=== PATIENT | male | born 1965 | race Caucasian/White ===

== ENCOUNTER 2020-10-17 13:42 | Outpatient (RCR) | payer MEDICARE, MEDICAID, SELFPAY | END 2020-11-24 15:54 | disposition home or self-care (01) | LOC: HO.WCC 13:42 | PROVIDERS: PCP Internal Medicine; Visit Provider Physician Assistant | DX: S31.821D Laceration without foreign body of left buttock, subsequent encounter (principal); G82.21 Paraplegia, complete; F12.90 Cannabis use, unspecified, uncomplicated; Z99.3 Dependence on wheelchair | CPT/HCPCS: 11042; 97597; 99212; 99213 ==

== ENCOUNTER 2022-09-12 10:54 | Outpatient (REF) | payer MEDICARE, MEDICAID, SELFPAY ==
[2022-09-12 11:03] LABS: MANUAL DIFF FLAG NO
[2022-09-12 11:55] LABS: Basophils Absolute Auto 0.1 X10*3/uL (0.0-0.2); Basophils Percent Auto 0.8 % (0-2); Eosinophils Absolute Auto 0.2 X10*3/uL (0.0-0.4); Eosinophils Percent Auto 3.7 % (0-4); Hematocrit 34.1 % (42.0-52.0); Hemoglobin 10.5 g/dl (14.0-18.0); Imm Gran Abs Auto 0.01 X10*3/uL (0.00-0.03); Imm Gran Pct Auto 0.2 % (0.0-0.4); Lymphocytes Absolute Auto 1.5 X10*3/uL (1.2-4.9); Lymphocytes Percent Auto 23.4 % (20-40); Mean Corpuscular HGB Conc 30.8 g/dl (31.0-36.0); Mean Corpuscular Hemoglobin 19.8 pg (27.0-33.0); Mean Platelet Volume 11.2 fL (9.4-12.4); Monocytes Absolute Auto 0.7 X10*3/uL (0.1-1.2); Monocytes Percent Auto 10.1 % (2-11); Neutrophils Percent Auto 61.8 % (45-73); Platelet Count 226 X10*3/uL (160-400); Red Blood Count 5.29 X10*6/uL (4.60-5.80); White Blood Count 6.5 X10*3/uL (4.8-10.8)
[2022-09-12 11:59] LABS: Mean Corpuscular Volume 64.5 fL (80.0-98.0)
[2022-09-12 12:55] LABS: Alanine Aminotransferase 28 U/L (0-40); Albumin Level 3.9 g/dL (3.5-5.0); Alkaline Phosphatase 79 U/L (39-117); Anion Gap 11 (12-20); Aspartate Amino Transferase 31 U/L (5-37); Bilirubin Total 0.6 mg/dL (0.0-1.0); Blood Urea Nitrogen 14 mg/dL (9-16); Calcium 9.1 mg/dL (8.4-10.2); Carbon Dioxide 28 mmol/L (22-29); Chloride 102 mmol/L (96-108); Cholesterol 153 mg/dL; Estimated Glomerular Filt Rate > 60; Glucose Fasting 196 mg/dL (60-99); HDL Cholesterol 31 mg/dL; Iron 108 mcg/dL (45-160); LDL Cholesterol Calculated 81 mg/dl; Percent Iron Saturation 50 % (15-50); Potassium 3.9 mmol/L (3.3-5.1); Sodium 137 mmol/L (135-145); Total Iron Binding Capacity 215 mcg/dL (228-428); Total Protein 6.8 g/dL (6.5-8.0); Triglycerides 208 mg/dL; Unsaturated Iron Binding 107 ug/dL
[2022-09-12 13:22] LABS: Ferritin 487 ng/mL (20-250); PSA,Total (Free>4and<10) 0.48 ng/mL (0.00-4.00); Thyroid Stimulating Hormone 1.85 uIU/mL (0.32-4.0)
== END 2022-09-12 10:55 | disposition home or self-care (01) ==
LOC: HO.LAB 10:54
PROVIDERS: Visit Provider Internal Medicine
DX: S24.102D Unspecified injury at T2-T6 level of thoracic spinal cord, subsequent encounter (principal)
CPT/HCPCS: 36415; 80053; 80061; 82306; 82728; 83540; 84153; 84443; 85025

== ENCOUNTER 2023-03-16 23:15 | Inpatient (IN) | payer MEDICARE, MEDICAID, SELFPAY ==
--- NOTE | ~2023-03-16 | XR_ITS ---
EXAMINATION: XR CHEST CLINICAL INFORMATION: Chills and cough. Shortness of breath. COMPARISON: CT from 01/02/2016 TECHNIQUE: Frontal view of the chest was obtained. FINDINGS: Thoracic spinal fusion hardware. The lungs are well expanded. There is no focal consolidation, edema, or effusion. No pneumothorax. The cardiomediastinal silhouette is within normal limits. No acute osseous abnormality. XR/XR chest 1V IMPRESSION: No acute pulmonary disease.
--- NOTE | ~2023-03-16 | CT_ITS ---
EXAMINATION: CT ABDOMEN AND PELVIS WITHOUT CONTRAST CLINICAL INFORMATION: UTI, bacteremia COMPARISON: 09/12/2016 TECHNIQUE: Multidetector volumetric imaging was performed from the superior aspect of the liver through the pubic symphysis. Sagittal and coronal reformatted images were obtained on the technologist's workstation. This CT examination was performed using dose optimization techniques as appropriate, variously including the following: *Automated exposure control *Adjustment of mA and/or kV according to patient size (this includes techniques or standardized protocols for targeted exams where dose is matched to indication/reason for exam; i.e. extremities or head) *Use of iterative reconstruction technique DLP: 503 mGy-cm FINDINGS: LUNG BASES: There is scarring in the right and left lung bases. LIVER, GALLBLADDER, AND BILIARY TREE: The liver is normal in size, shape, and attenuation. No focal hepatic lesion or biliary ductal dilatation is present. The gallbladder is unremarkable with no evidence of radiopaque gallstones, gallbladder wall thickening, or obvious pericholecystic inflammatory changes. PANCREAS: Unremarkable. SPLEEN: Spleen is mildly enlarged, measured 14.1 x 14.6 cm. ADRENAL GLANDS: Unremarkable. 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 BLADDER: Patient is status post cystectomy with conduit on the right. GASTROINTESTINAL TRACT: The small and large bowel are unremarkable. The appendix is unremarkable. ABDOMINAL WALL: There is conduit in the right stoma. LYMPH NODES: Normal. VASCULAR: There is IVC filter seen. PELVIC VISCERA: Unremarkable. OSSEOUS STRUCTURES: There are postsurgical changes in the left hip with hardware in place CT/CT abdomen pelvis wo IV con IMPRESSION: 1. Status post cystectomy with conduit on the right. 2. Mild splenomegaly. Fleischner guidelines were followed.
[2023-03-16 23:43] VITALS: BP 93/61; PULSE 101; RESP 18; TEMP 36.4; O2SAT 96; BMI 27.5
[2023-03-17] VITALS (7 sets, daily range): BP systolic 100–154; BP diastolic 53–83; PULSE 78–109; RESP 16–26; TEMP 36.1–39.2; O2SAT 95–98; BMI 27.5
[2023-03-17 00:03] LABS: MANUAL DIFF FLAG NO
[2023-03-17 00:05] LABS: Basophils Percent Auto 0.2 % (0-2); Eosinophils Percent Auto 0.2 % (0-4); Hemoglobin 9.1 g/dl (14.0-18.0); Imm Gran Abs Auto 0.07 X10*3/uL (0.00-0.03); Imm Gran Pct Auto 0.6 % (0.0-0.4); Lymphocytes Absolute Auto 0.5 X10*3/uL (1.2-4.9); Lymphocytes Percent Auto 4.2 % (20-40); Mean Corpuscular HGB Conc 31.4 g/dl (31.0-36.0); Mean Corpuscular Hemoglobin 19.3 pg (27.0-33.0); Mean Platelet Volume 8.8 fL (9.4-12.4); Monocytes Absolute Auto 0.8 X10*3/uL (0.1-1.2); Neutrophils Absolute Auto 11.2 x10*3/uL (2.0-8.3); Neutrophils Percent Auto 88.8 % (45-73); Platelet Count 239 X10*3/uL (160-400); Red Blood Count 4.72 X10*6/uL (4.60-5.80); Red Cell Distribution Width 14.7 % (11.0-16.0); White Blood Count 12.6 X10*3/uL (4.8-10.8)
[2023-03-17 00:06] LABS: Mean Corpuscular Volume 61.4 fL (80.0-98.0)
[2023-03-17 00:22] LABS: Anion Gap 17 (12-20)
[2023-03-17 00:26] LABS: Alanine Aminotransferase 16 U/L (0-40); Albumin Level 3.6 g/dL (3.5-5.0); Alkaline Phosphatase 73 U/L (39-117); Aspartate Amino Transferase 16 U/L (5-37); Bilirubin Direct 0.4 mg/dL (0.0-0.5); Blood Urea Nitrogen 16 mg/dL (9-16); Calcium 9.2 mg/dL (8.4-10.2); Carbon Dioxide 21 mmol/L (22-29); Chloride 97 mmol/L (96-108); Creatinine Clr Calc Pharmacy 93.8; Estimated Glomerular Filt Rate > 60; Glucose Random 213 mg/dL (60-115); Sodium 131 mmol/L (135-145); Total Protein 7.3 g/dL (6.5-8.0)
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
[2023-03-17 03:11] LABS: COVID-19 Test Negative (Negative); IDNOW Serial# 08D9AD1C; IDNOW Serial# BCCEAD1C; Influenza A Negative (Negative)
[2023-03-17 03:12] LABS: Influenza B2 Negative (Negative)
[2023-03-17 03:19] LABS: Appearance Urine Cloudy; Color Urine Yellow; Glucose Urine UA 500 mg/dL (Negative); Leukocyte Esterase Urine Large (3+) (Negative); Nitrite Urine Positive (Negative); PH 6.5 (5.0-9.0); UMIC TRIGGER UACC YES; Urine Blood Trace (Negative); Urine Ketones Negative (Negative); Urine Protein Negative (Neg-Trace)
[2023-03-17 03:26] LABS: Bacteria Urine 4+ (None Seen); Hyaline Casts Urine 0-2 /LPF (0-2); UACC Culture Trigger YES; WBC Urine >50 /HPF (0-5)
[2023-03-17] MEDS: Acetaminophen 325 MG TABLET 975 MG PO (04:28)
[2023-03-17] MEDS: cefTRIAXone sodium 1 GM in 0.9 % Sodium Chloride 50 ML IV (04:28)
[2023-03-17 04:44] LABS: Lactic Acid 3.7 mmol/L (0.5-2.0)
--- NOTE | 2023-03-17 04:45 | PC.NURSE ---
critical lactic 3.7 reported to ANTHONY Queen and Provider Dr. Hong braswell.
[2023-03-17] MEDS: ondansetron HCL 4 MG/2 ML VIAL IVPUSH (04:50)
[2023-03-17 06:28] LABS: Reflex Lactate? Lactic Acid Added
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
--- NOTE | 2023-03-17 07:12 | PHA.MEDREC ---
Pharmacy Consult ? Medication Reconciliation Pharmacy has reviewed the medication reconciliation odne by RN.
[2023-03-17 07:39] LABS: ~Lactic Acid-LAB USE ONLY 0.8 mmol/L (0.5-2.0)
[2023-03-17] MEDS: Lactated Ringers 1,000 ML 100 ML IVCONT (07:50)
--- NOTE | 2023-03-17 09:58 | PM.EVENT ---
Event Note Date of Service: 03/17/23 Event Note: pt seen/examined, admitted. A/P per H and P from today, continue per H and P Time Spent With Patient Time: Total time managing care of this patient today ____ minutes.
--- NOTE | 2023-03-17 12:30 | MHC.CM.PN ---
IMM DELIVERED PT LIVES ALONE, INDEPENDENT AT BASELINE. W/C BOUND AND SELF TRANSFERS. NO HCP, DECLINES . PCP DR. ESCOBAR. DP: HOME ,NO SERVICES ANTICIPATED. FAMILY WILL TRANSPORT. CM WILL CONTINUE TO FOLLOW FOR DC NEEDS/CHANGES IN PLAN.
--- NOTE | 2023-03-17 14:10 | PC.NURSE ---
Patient brought to floor at approximately 10am. Alert and oriented, arrived in his own personal wheelchair. Ambulates independently within his room. Assessed and all information put into the computer. No c/o pain. Vitals stable, pt eating breakfast and sitting at table.
[2023-03-17] MEDS: Baclofen 20 MG TABLET PO ×2 (17:53→23:49)
[2023-03-17] MEDS: oxyCODONE HCl Immed Release 5 MG TABLET 10 MG PO ×2 (17:53→23:49)
[2023-03-17] MEDS: Enoxaparin Sodium 40 MG/0.4 ML SYRINGE SUBCUT (20:56)
[2023-03-17] MEDS: 0.9 % Sodium Chloride Flush 3 ML SYRINGE IVFLUSH (20:58)
[2023-03-17] MEDS: Acetaminophen 325 MG TABLET 650 MG PO (23:49)
[2023-03-18 03:30] VITALS: BP 109/69; PULSE 74; RESP 16; TEMP 36.1; O2SAT 97
[2023-03-18] MEDS: Baclofen 20 MG TABLET PO ×2 (06:06→19:57)
[2023-03-18] MEDS: oxyCODONE HCl Immed Release 5 MG TABLET 10 MG PO ×3 (06:06→19:56)
[2023-03-18 06:20] LABS: Anion Gap 15 (12-20); Blood Urea Nitrogen 12 mg/dL (9-16); Calcium 8.9 mg/dL (8.4-10.2); Carbon Dioxide 20 mmol/L (22-29); Chloride 107 mmol/L (96-108); Creatinine Clr Calc Pharmacy 122.3; Estimated Glomerular Filt Rate > 60; Glucose Random 161 mg/dL (60-115); Potassium 3.7 mmol/L (3.3-5.1); Sodium 138 mmol/L (135-145)
[2023-03-18 06:29] LABS: Basophils Percent Auto 0.3 % (0-2); Eosinophils Absolute Auto 0.2 X10*3/uL (0.0-0.4); Eosinophils Percent Auto 3.3 % (0-4); Hematocrit 25.3 % (42.0-52.0); Hemoglobin 7.9 g/dl (14.0-18.0); Imm Gran Abs Auto 0.02 X10*3/uL (0.00-0.03); Imm Gran Pct Auto 0.3 % (0.0-0.4); Lymphocytes Absolute Auto 1.1 X10*3/uL (1.2-4.9); MANUAL DIFF FLAG SCAN; Mean Corpuscular HGB Conc 31.2 g/dl (31.0-36.0); Mean Corpuscular Hemoglobin 19.3 pg (27.0-33.0); Mean Platelet Volume 10.2 fL (9.4-12.4); Monocytes Absolute Auto 0.9 X10*3/uL (0.1-1.2); Monocytes Percent Auto 13.3 % (2-11); Neutrophils Absolute Auto 4.7 x10*3/uL (2.0-8.3); Neutrophils Percent Auto 66.8 % (45-73); Platelet Count 200 X10*3/uL (160-400); SCAN SMEAR FLAG 1; White Blood Count 7.1 X10*3/uL (4.8-10.8)
[2023-03-18 06:33] LABS: Mean Corpuscular Volume 61.7 fL (80.0-98.0)
[2023-03-18 07:18] LABS: SLIDE REVIEW VERIFIED
[2023-03-18 07:36] VITALS: BP 115/64; PULSE 62; RESP 18; TEMP 36.1; O2SAT 98
[2023-03-18] MEDS: Omeprazole 20 MG CAPSULE.DR PO (07:59)
[2023-03-18] MEDS: cefTRIAXone sodium 2 GM in 0.9 % Sodium Chloride 50 ML IV (08:00)
[2023-03-18] MEDS: 0.9 % Sodium Chloride Flush 3 ML SYRINGE IVFLUSH ×3 (08:00→20:03)
--- NOTE | 2023-03-18 09:47 | P.PNIM_ITS ---
Subjective Subjective Date of Service: 03/18/23 Interval History: f/u on sepsis d/t uti responding well to treatment, no more fever or chills, he wishes to go home soon Physical Exam Vital Signs: Vital Signs: Last Vital Signs Temp 97.0 F 03/18/23 07:36 Pulse 62 03/18/23 07:36 Resp 18 03/18/23 07:36 BP 115/64 03/18/23 07:36 Pulse Ox 98 03/18/23 07:36 O2 Del Method Room Air 03/18/23 07:36 BMI result Body Mass Index 27.5 Const: Other: a&0 x 3 cv rrr s1s2 lungs cta abd s, nd, nt ext no edema neuro nf Objective Data Active Medications Acetaminophen (Acetaminophen 325 Mg Tablet) 650 mg PO Q6H PRN PRN Reason: Pain, Mild (Pain Scale 1-3) Last Admin: 03/17/23 23:49 Dose: 650 mg Documented By: SOWMYA Baclofen (Baclofen 20 Mg Tablet) 20 mg PO QID PRN PRN Reason: Muscle Pain Last Admin: 03/18/23 06:06 Dose: 20 mg Documented By: NICOLETTE Docusate Sodium (Docusate Sodium 100 Mg Capsule) 100 mg PO DAILY PRN PRN Reason: Constipation Enoxaparin Sodium (Enoxaparin Sodium 40 Mg/0.4 Ml Syringe) 40 mg SUBCUT Q24H [facility] Last Admin: 03/17/23 20:56 Dose: 40 mg Documented By: GEORGINA Lactated Ringer's (Lr) 1,000 mls @ 100 mls/hr IVCONT .Q10H [facility] Last Admin: 03/18/23 04:11 Dose: Not Given Documented By: NICOLETTE Non-Admin Reason: IV Running Ceftriaxone Sodium 2 gm/ (Sodium Chloride) 50 mls @ 100 mls/hr IV Q24H [facility] Last Infusion: 03/18/23 08:33 Dose: 100 mls/hr Documented By: JOHNNY Ibuprofen (Ibuprofen 800 Mg Tablet) 800 mg PO BID PRN PRN Reason: Pain (Scale Score 1-3) Omeprazole (Omeprazole 20 Mg Capsule.) 20 mg PO DAILY [facility] Last Admin: 03/18/23 07:59 Dose: 20 mg Documented By: JOHNNY Ondansetron HCl (Ondansetron Hcl 4 Mg/2 Ml Vial) 4 mg IVPUSH Q8H PRN PRN Reason: Nausea and Vomiting Oxycodone HCl (Oxycodone Hcl Immed Release 5 Mg Tablet) 10 mg PO Q6H PRN PRN Reason: Pain (Scale Score 4-6) Last Admin: 03/18/23 06:06 Dose: 10 mg Documented By: NICOLETTE Pharmacy Consult (Consult Rx Perform Med Rec) 1 each MISCELLANE ONCE PRN PRN Reason: Consult order Sodium Chloride (0.9 % Sodium Chloride Flush 3 Ml Syringe) 3 ml IVFLUSH QSHIFT [facility] Last Admin: 03/18/23 08:00 Dose: 3 ml Documented By: JOHNNY Labs 03/18/23 05:38 03/18/23 05:38 Labs: Laboratory Results - last 24 hr 03/18/23 03/18/23 05:38 05:38 MCV 61.7 L MCH 19.3 L MCHC 31.2 RDW 15.0 Plt Count 200 MPV 10.2 Immature Gran % (Auto) 0.3 Neut % (Auto) 66.8 Lymph % (Auto) 16.0 L Bulloch % (Auto) 13.3 H Eos % (Auto) 3.3 Baso % (Auto) 0.3 Lymph # (Auto) 1.1 L Bulloch # (Auto) 0.9 Eos # (Auto) 0.2 Baso # (Auto) 0.0 Abs Immat Gran (auto) 0.02 Absolute Neuts (auto) 4.7 Absolute Nucleated RBC 0.000 Nucleated RBC % (auto) 0.0 Smear Tech's Comments VERIFIED Anion Gap 15 Estim Creat Clear Calc 122.3 Estimated GFR > 60 Random Glucose 161 H Calcium 8.9 Microbiology Microbiology Results: Microbiology 03/17/23 02:43 Blood Culture - Preliminary Blood - Venous Prelim: GNR Gram Stain only 03/17/23 02:43 Blood Culture - Preliminary Blood - Venous Prelim: GNR Gram Stain only Assessment and Plan (1) Sepsis: Status: Acute (2) Bacteremia: Status: Acute (3) Urinary tract infection: Status: Acute Plan This is a 57-year-old male with past medical history of paraplegia wheelchair- bound, urostomy, comes into the hospital with complaints of fever chills, found to have sepsis d/t gram negative elaine uti and bacteremia # sepsis d/t gran begative rid uti and bacteremia, clinically responding to Ceftriaxone -continue Ceftriaxone 2 grams daily, follow culture sensitivity, id consult #acute lactic acidosis d/t sepsis DVT prophylaxis:? Lovenox Given patient's need for further management of sepsis with IV antibiotics patient require minimum 2 nights inpatient hospital stay for further management and monitoring Time Spent With Patient Time: Total time managing care of this patient today ____ minutes. Time Spent With Patient Time: Total time managing care of this patient today ____ minutes. Quality Stroke Does the patient have a stroke diagnosis?: No VTE Prior VTE?: No VTE Risk Level:: Medical - moderate - high VTE Device Contraindication: Treatment Not Indicated VTE Drug Contraindication: N/A - Med Ordered
--- NOTE | 2023-03-18 12:17 | P.CDIM_ITS ---
PROVIDER RESPONSE TEXT: To clarify, the appropriate diagnosis supported by the clinical indicators: Acute lactic acidosis QUERY TEXT: PHYSICIAN'S DOCUMENTATION REQUEST Date of Query: 03/17/2023 11:36 AM EDT Patient Name: JOSE GALVAN Admit Date: 03/17/2023 Dear Cornelio Neville, A review of the medical record indicates additional documentation may be needed. Please review below and update the documentation accordingly. Clinical Indicators: PN: Dx. Lactic acidosis LA 3.7 IV fluids Clarify which of the following accurately represents the acuity of the Lactic acidosis: Acute lactic acidosis Other please specify Other (explain)Clinically unable to determine (explain)Thank you, Karishma Zamora, CCS, CDIS Use of terms such as suspected, likely, concern for, or probable (associated with a specific diagnosi s that is being evaluated, monitored, or treated as if it exists) are acceptable and can be coded in the inpatient se tting, when documented at the time of discharge. Please use your independent medical judgment in providing your response. THIS QUERY IS PART OF THE PERMANENT MEDICAL RECORD
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
[2023-03-18 16:00] VITALS: BP 132/26; PULSE 87; RESP 18; TEMP 37.1; O2SAT 98
[2023-03-18 19:39] VITALS: BP 120/66; PULSE 82; RESP 18; TEMP 36.8; O2SAT 97
[2023-03-18] MEDS: Acetaminophen 325 MG TABLET 650 MG PO (19:57)
[2023-03-18] MEDS: Enoxaparin Sodium 40 MG/0.4 ML SYRINGE SUBCUT (19:57)
[2023-03-18] MEDS: Ibuprofen 800 MG TABLET PO (20:06)
[2023-03-19] MEDS: Acetaminophen 325 MG TABLET 650 MG PO ×2 (02:01→08:26)
[2023-03-19] MEDS: oxyCODONE HCl Immed Release 5 MG TABLET 10 MG PO ×2 (02:02→08:27)
[2023-03-19] MEDS: Baclofen 20 MG TABLET PO ×2 (02:02→08:26)
[2023-03-19 03:16] VITALS: BP 113/69; PULSE 60; RESP 18; TEMP 36.3; O2SAT 98
[2023-03-19] MEDS: Omeprazole 20 MG CAPSULE.DR PO (07:34)
[2023-03-19] MEDS: 0.9 % Sodium Chloride Flush 3 ML SYRINGE IVFLUSH (07:42)
[2023-03-19 08:00] VITALS: BP 130/78; PULSE 65; RESP 18; TEMP 36.4; O2SAT 98
[2023-03-19] MEDS: cefTRIAXone sodium 2 GM in 0.9 % Sodium Chloride 50 ML IV (08:26)
--- NOTE | 2023-03-19 08:45 | HO.PM.IMPN ---
Subjective Subjective Date of Service: 03/19/23 Interval History: f/u on sepsis d/t uti no fever or chills, culture sensitivity pending Physical Exam Vital Signs: Vital Signs: Last Vital Signs Temp 97.5 F 03/19/23 08:00 Pulse 65 03/19/23 08:00 Resp 18 03/19/23 08:00 BP 130/78 03/19/23 08:00 Pulse Ox 98 03/19/23 08:00 O2 Del Method Room Air 03/19/23 08:00 BMI result Body Mass Index 27.5 Const: Other: a&0 x 3 cv rrr s1s2 lungs cta abd s, nd, nt ext no edema neuro nf Objective Data Active Medications Acetaminophen (Acetaminophen 325 Mg Tablet) 650 mg PO Q6H PRN PRN Reason: Pain, Mild (Pain Scale 1-3) Last Admin: 03/19/23 08:26 Dose: 650 mg Documented By: YARITZA Baclofen (Baclofen 20 Mg Tablet) 20 mg PO QID PRN PRN Reason: Muscle Pain Last Admin: 03/19/23 08:26 Dose: 20 mg Documented By: YARITZA Docusate Sodium (Docusate Sodium 100 Mg Capsule) 100 mg PO DAILY PRN PRN Reason: Constipation Enoxaparin Sodium (Enoxaparin Sodium 40 Mg/0.4 Ml Syringe) 40 mg SUBCUT Q24H [facility] Last Admin: 03/18/23 19:57 Dose: 40 mg Documented By: SOWMYA Ceftriaxone Sodium 2 gm/ (Sodium Chloride) 50 mls @ 100 mls/hr IV Q24H [facility] Last Admin: 03/19/23 08:26 Dose: 100 mls/hr Documented By: YARITZA Ibuprofen (Ibuprofen 800 Mg Tablet) 800 mg PO BID PRN PRN Reason: Pain (Scale Score 1-3) Last Admin: 03/18/23 20:06 Dose: 800 mg Documented By: SOWMYA Omeprazole (Omeprazole 20 Mg Capsule.Dr) 20 mg PO DAILY [facility] Last Admin: 03/19/23 07:34 Dose: 20 mg Documented By: YARITZA Ondansetron HCl (Ondansetron Hcl 4 Mg/2 Ml Vial) 4 mg IVPUSH Q8H PRN PRN Reason: Nausea and Vomiting Oxycodone HCl (Oxycodone Hcl Immed Release 5 Mg Tablet) 10 mg PO Q6H PRN PRN Reason: Pain (Scale Score 4-6) Last Admin: 03/19/23 08:27 Dose: 10 mg Documented By: YARITZA Pharmacy Consult (Consult Rx Perform Med Rec) 1 each MISCELLANE ONCE PRN PRN Reason: Consult order Sodium Chloride (0.9 % Sodium Chloride Flush 3 Ml Syringe) 3 ml IVFLUSH QSHIFT [facility] Last Admin: 03/19/23 07:42 Dose: 3 ml Documented By: YARITZA Vancomycin HCl (Vancomycin Hcl 125 Mg Capsule) 125 mg PO Q6H [facility] Labs 03/18/23 05:38 03/18/23 05:38 Microbiology Microbiology Results: Microbiology 03/17/23 02:43 Blood Culture - Final Blood - Venous Escherichia coli 03/17/23 02:43 Blood Culture - Final Blood - Venous Escherichia coli 03/17/23 Unknown Urine Culture - Final Urine clean catch - Urine fortune top Escherichia coli Assessment and Plan (1) Sepsis: Status: Acute (2) Bacteremia: Status: Acute (3) Urinary tract infection: Status: Acute Plan This is a 57-year-old male with past medical history of paraplegia wheelchair-bound, urostomy, comes into the hospital with complaints of fever chills, found to have sepsis d/t gram negative elaine uti and bacteremia # sepsis d/t gran begative elaine uti and bacteremia, clinically responding to Ceftriaxone -continue Ceftriaxone 2 grams daily, follow culture sensitivity, id recommendation noted -vanco po for c dif prophylaxis #acute lactic acidosis d/t sepsis DVT prophylaxis:? Lovenox Given patient's need for further management of sepsis with IV antibiotics patient require minimum 2 nights inpatient hospital stay for further management and monitoring Time Spent With Patient Time: Total time managing care of this patient today ____ minutes. Time Spent With Patient Time: Total time managing care of this patient today ____ minutes. Quality Stroke Does the patient have a stroke diagnosis?: No VTE Prior VTE?: No VTE Risk Level:: Medical - moderate - high VTE Device Contraindication: Treatment Not Indicated VTE Drug Contraindication: N/A - Med Ordered
[2023-03-19] MEDS: vancomycin HCL 125 MG CAPSULE PO (08:58)
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
--- NOTE | 2023-03-19 12:50 | MHC.CM.PN ---
DP: PT HAS BEEN MEDICALLY CLEARED FOR DC HOME, NO SERVICES. FAMILY WILL TRANSPORT HOME
--- NOTE | 2023-03-19 16:42 | PM.EVENT ---
Event Note Date of Service: 03/19/23 Event Note: patient should have 14 days po cephalosporin and po Vancomycin 125 qid for total duration and for 2 days after Cdiff prevention Time Spent With Patient Time: Total time managing care of this patient today ____ minutes.
== END 2023-03-19 13:36 | disposition home or self-care (01) | DRG 872 ==
LOC: HO.ED 03-17 04:59 → HO.EDOVER 03-17 06:51 → HO.S3 03-17 07:49
PROVIDERS: Admitting Provider Internal Medicine; Emergency Provider Emergency Medicine Emergency Medical Services; PCP Internal Medicine; Visit Provider Internal Medicine
DX: A41.51 Sepsis due to Escherichia coli [E. coli] (principal); N39.0 Urinary tract infection, site not specified; G82.20 Paraplegia, unspecified; E87.21 Acute metabolic acidosis; S24.102S Unspecified injury at T2-T6 level of thoracic spinal cord, sequela; Y24.9XXS Unspecified firearm discharge, undetermined intent, sequela; Z87.440 Personal history of urinary (tract) infections; Z93.6 Other artificial openings of urinary tract status; Z20.822 Contact with and (suspected) exposure to COVID-19; Z79.899 Other long term (current) drug therapy
CPT/HCPCS: 36415; 71045; 74176; 80048; 80076; 81001; 83605; 85025; 87040; 87077; 87086; 87088; 87186; 87205; 87502; 87635; 99285; J0696; J1650; J2405

== ENCOUNTER → 2023-03-17 06:48 | Outpatient (BNV) | payer MEDICARE, MEDICAID, SELFPAY | PROVIDERS: Admitting Provider Internal Medicine; Emergency Provider Emergency Medicine Emergency Medical Services; PCP Internal Medicine; Visit Provider Internal Medicine | DX: A41.9 Sepsis, unspecified organism (principal); N39.0 Urinary tract infection, site not specified | CPT/HCPCS: 99222; 99499 ==

== ENCOUNTER → 2023-03-17 06:48 | Outpatient (BNV) | payer MEDICARE, MEDICAID, SELFPAY | PROVIDERS: Admitting Provider Internal Medicine; Emergency Provider Emergency Medicine Emergency Medical Services; PCP Internal Medicine; Visit Provider Internal Medicine | DX: A41.9 Sepsis, unspecified organism (principal); N39.0 Urinary tract infection, site not specified | CPT/HCPCS: 99223; 99232; 99239; 99499 ==

== ENCOUNTER 2023-09-12 08:23 | Inpatient (IN) | payer MEDICARE, MEDICAID, SELFPAY ==
--- NOTE | ~2023-09-12 | XR_ITS ---
EXAMINATION: Left ankle, left knee and left hip. CLINICAL INDICATIONS: Fall. COMPARISON: AP pelvis and bilateral hips 05/25/2015. TECHNIQUE: AP pelvis left hip 3 views. Left knee 2 views and left ankle 2 views. FINDINGS: Left ankle: The ankle mortise and subtalar joints are normal. There is mild osteopenia. No visible acute fracture, dislocation or subluxation seen. LEFT KNEE: There is a supracondylar comminuted fracture distal femur with anterior angulation of distal fragment. There is mild suprapatellar joint effusion with soft tissue edema. There is diffuse osteopenia present. LEFT HIP AND AP PELVIS: There is normal symmetry of bilateral hip joints. There are 3 nails in the left femoral neck for an old healed fracture. There is no recurrent fracture seen in the left hip. The acetabulum and the left pelvic bones are normal. SI joints are symmetrical and normal. XR/XR hip LT min 2V IMPRESSION: Supracondylar comminuted fracture left distal femur with anterior angulation distal fragment. Mild joint effusion. No fracture or dislocation left ankle.. The old healed fracture left femoral neck. No recurrent fracture seen. The right hip and the rest the pelvis unremarkable. There is significant osteopenia seen throughout the pelvis and the left lower extremity.
--- NOTE | ~2023-09-12 | XR_ITS ---
EXAMINATION: Left ankle, left knee and left hip. CLINICAL INDICATIONS: Fall. COMPARISON: AP pelvis and bilateral hips 05/25/2015. TECHNIQUE: AP pelvis left hip 3 views. Left knee 2 views and left ankle 2 views. FINDINGS: Left ankle: The ankle mortise and subtalar joints are normal. There is mild osteopenia. No visible acute fracture, dislocation or subluxation seen. LEFT KNEE: There is a supracondylar comminuted fracture distal femur with anterior angulation of distal fragment. There is mild suprapatellar joint effusion with soft tissue edema. There is diffuse osteopenia present. LEFT HIP AND AP PELVIS: There is normal symmetry of bilateral hip joints. There are 3 nails in the left femoral neck for an old healed fracture. There is no recurrent fracture seen in the left hip. The acetabulum and the left pelvic bones are normal. SI joints are symmetrical and normal. XR/XR ankle LT 2V IMPRESSION: Supracondylar comminuted fracture left distal femur with anterior angulation distal fragment. Mild joint effusion. No fracture or dislocation left ankle.. The old healed fracture left femoral neck. No recurrent fracture seen. The right hip and the rest the pelvis unremarkable. There is significant osteopenia seen throughout the pelvis and the left lower extremity.
--- NOTE | ~2023-09-12 | XR_ITS ---
EXAMINATION: Left ankle, left knee and left hip. CLINICAL INDICATIONS: Fall. COMPARISON: AP pelvis and bilateral hips 05/25/2015. TECHNIQUE: AP pelvis left hip 3 views. Left knee 2 views and left ankle 2 views. FINDINGS: Left ankle: The ankle mortise and subtalar joints are normal. There is mild osteopenia. No visible acute fracture, dislocation or subluxation seen. LEFT KNEE: There is a supracondylar comminuted fracture distal femur with anterior angulation of distal fragment. There is mild suprapatellar joint effusion with soft tissue edema. There is diffuse osteopenia present. LEFT HIP AND AP PELVIS: There is normal symmetry of bilateral hip joints. There are 3 nails in the left femoral neck for an old healed fracture. There is no recurrent fracture seen in the left hip. The acetabulum and the left pelvic bones are normal. SI joints are symmetrical and normal. XR/XR knee LT 2V IMPRESSION: Supracondylar comminuted fracture left distal femur with anterior angulation distal fragment. Mild joint effusion. No fracture or dislocation left ankle.. The old healed fracture left femoral neck. No recurrent fracture seen. The right hip and the rest the pelvis unremarkable. There is significant osteopenia seen throughout the pelvis and the left lower extremity.
--- NOTE | ~2023-09-12 | CT_ITS ---
EXAMINATION: CT FEMUR WITH CONTRAST, LEFT CLINICAL INFORMATION: Hematoma. Fall. COMPARISON: Left hip radiographs dated 09/12/2023. CT abdomen/pelvis dated 03/19/2023. TECHNIQUE: Contiguous axial CT images of the left femur were obtained following the IV administration of 85 mL Omnipaque 350 contrast. Multiplanar reformats were provided and reviewed. This CT examination was performed using dose optimization techniques as appropriate, variously including the following: *Automated exposure control *Adjustment of mA and/or kV according to patient size (this includes techniques or standardized protocols for targeted exams where dose is matched to indication/reason for exam; i.e. extremities or head) *Use of iterative reconstruction technique. DOSE: 417 mGy-cm. FINDINGS: Comminuted and displaced distal femoral fracture with a dominant oblique component to the fracture which extends into the posterior and lateral cortex. The distal fracture fragment is displaced anteriorly with cortical step off measuring up to 1.5 cm in AP dimension. Multiple small fracture fragments are seen along the periphery of the main fracture line. The fracture lines extend distally to the distal femoral metaphysis without contacting the femoral articular surface. No additional fracture or dislocation. Proximal left femoral orthopedic screws without evidence of hardware fracture or loosening. No femoral head avascular necrosis. No concerning lytic or blastic osseous lesion. Moderate lipohemarthrosis within the left knee. Soft tissue edema and swelling adjacent to the fracture as well as throughout the quadriceps musculature. No large fluid collection or significant hematoma formation. No soft tissue mass or enhancing lesion. Vascular calcifications. No active extravasation of contrast. Grossly unremarkable intrapelvic structures. CT/CT femur LT w IV con IMPRESSION: 1. Comminuted and displaced distal femoral fracture with a dominant oblique component extending into the posterior and lateral cortex. The distal fracture fragment is displaced anteriorly with cortical step-off measuring up to 1.5 cm in AP dimension. Multiple small fracture fragments along the periphery of the main fracture line. No contacting the femoral articular surface. 2. Moderate lipohemarthrosis within the left knee. Soft tissue edema and swelling adjacent to the fracture as well as throughout the quadriceps musculature. No large fluid collection or significant hematoma formation. 3. Proximal left femoral orthopedic screws without evidence of hardware fracture or loosening.
[2023-09-12 08:40] VITALS: BP 120/81; PULSE 121; RESP 16; TEMP 36.8; O2SAT 97; BMI 27.4
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
[2023-09-12 10:38] LABS: Hematocrit 30.6 % (42.0-52.0); Hemoglobin 9.6 g/dl (14.0-18.0); Mean Corpuscular HGB Conc 31.4 g/dl (31.0-36.0); Mean Corpuscular Hemoglobin 19.5 pg (27.0-33.0); Mean Corpuscular Volume 62.2 fL (80.0-98.0); Mean Platelet Volume 10.3 fL (9.4-12.4); Platelet Count 254 X10*3/uL (160-400); Red Blood Count 4.92 X10*6/uL (4.60-5.80); Red Cell Distribution Width 15.5 % (11.0-16.0); White Blood Count 9.1 X10*3/uL (4.8-10.8)
[2023-09-12 10:44] LABS: Prothrombin Time 11.9 SEC (11.1-13.3)
--- NOTE | 2023-09-12 10:57 | ECG_ITS ---
Test Reason : FEMUR FRACTURE Blood Pressure : / mmHG Vent. Rate : 097 BPM Atrial Rate : 097 BPM P-R Int : 172 ms QRS Dur : 066 ms QT Int : 302 ms P-R-T Axes : 068 048 053 degrees QTc Int : 383 ms Normal sinus rhythm Normal ECG When compared with ECG of 02-JAN-2016 11:44, No significant change was found Referred By: Suzi Truong Electronically Signed By:Ryan Cho
--- NOTE | 2023-09-12 10:57 | PC.NURSE ---
coming from home, patient paralyzed - wheelchair bound. having difficulty/pain with ADLs s/p fall from wheelchair. IV established, labs obtained and sent. awaiting ortho consult
[2023-09-12] MEDS: ondansetron HCL 4 MG/2 ML VIAL IVPUSH (11:10)
[2023-09-12] MEDS: Morphine Sulfate 4 MG/ML CARTRIDGE IVPUSH (11:10)
[2023-09-12 11:13] VITALS: BP 138/89; PULSE 115; RESP 18; TEMP 36.7; O2SAT 100
[2023-09-12 11:14] LABS: Anion Gap 14 (12-20); Blood Urea Nitrogen 15 mg/dL (9-16); Calcium 9.1 mg/dL (8.4-10.2); Carbon Dioxide 22 mmol/L (22-29); Chloride 103 mmol/L (96-108); Creatinine Clr Calc Pharmacy 106.4; Estimated Glomerular Filt Rate > 60; Glucose Random 232 mg/dL (60-115); Potassium 4.4 mmol/L (3.3-5.1); Sodium 135 mmol/L (135-145)
[2023-09-12] MEDS: Baclofen 20 MG TABLET PO ×2 (11:31→17:41)
--- NOTE | 2023-09-12 11:49 | PHA.MEDREC ---
Pharmacy Consult ? Medication Reconciliation Pharmacy has completed the medication reconciliation.
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
[2023-09-12 14:48] LABS: COVID-19 Test Negative (Negative); IDNOW Serial# 08D9AD1C
[2023-09-12 16:28] VITALS: BP 131/78; PULSE 104; RESP 14; O2SAT 98
[2023-09-12] MEDS: oxyCODONE HCl Immed Release 5 MG TABLET 10 MG PO ×2 (17:41→23:04)
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
--- NOTE | 2023-09-12 18:18 | PC.NURSE ---
patient medicated per the OCT, states that he takes his baclofen and oxycodone q6h, next dose due 2344. placed into hospital bed for comfort. awaiting ortho to apply immobilizer to left leg. thompson bag placed for comfort at night with urostomy bag. patient has own wheelchair in room, usually is independent at home, however is pt/cm at this time.
[2023-09-12 19:01] VITALS: BP 118/69; PULSE 94; RESP 17; TEMP 37.2; O2SAT 96
--- NOTE | 2023-09-12 19:05 | PC.NURSE ---
assumed care of pt
--- NOTE | 2023-09-12 20:56 | PC.NURSE ---
Assumed care of pt from ANTHONY Cordero. Pt transferred from ED room 1 to Overflow on hospital bed without incident. pt belongings including wheelchair brought with pt, placed in room. Pt oriented to surroundings, provided with tv remote and call estrella. QuintinO x4, no acute distress at this time.
--- NOTE | 2023-09-13 04:57 | PC.NURSE ---
Assumed care of patient. A&Ox4,, patient sleeping throughout night. Call estrella within reach. Bed alarm on for safety.
[2023-09-13 05:46] VITALS: BP 136/71; PULSE 97; RESP 16; TEMP 36.9; O2SAT 95
[2023-09-13] MEDS: oxyCODONE HCl Immed Release 5 MG TABLET 10 MG PO ×3 (05:54→18:33)
[2023-09-13] MEDS: Baclofen 20 MG TABLET PO ×3 (05:55→18:33)
--- NOTE | 2023-09-13 06:07 | MHC.EDTECH ---
This tech emptied thompson bag at time of vitals, pt was very pleasant. Requested to see nurse for medication at time of vitals. RN was made aware and medication was given.
[2023-09-13] MEDS: Omeprazole 20 MG CAPSULE.DR PO (08:22)
[2023-09-13 08:34] VITALS: BP 141/77; PULSE 74; RESP 20; TEMP 36.6; O2SAT 95
[2023-09-13 10:03] VITALS: BP 141/77; PULSE 74; O2SAT 95
--- NOTE | 2023-09-13 11:14 | MHC.CM.ED ---
Met with pt to review PT eval and acute rehab referrals. Declined by [facility] reviewing and [facility] interested but no beds today. Will await determinations - pt aware and in agreement: family bringing some of pt's personal adaptive equipment to promote independence while waiting for placement. Pt has an immobilizer in place - no surgical intervention warranted at this time. ED CM to follow
[2023-09-13 13:53] VITALS: BP 109/59; PULSE 98; RESP 16; TEMP 37.2; O2SAT 94
--- NOTE | 2023-09-13 16:51 | MHC.EDTECH ---
Brought patient a fresh pitcher of ice water.
--- NOTE | 2023-09-13 18:48 | PC.NURSE ---
A/Ox4. Pleasant and cooperative. Left knee immobilizer in place. Reporting intermittent pain, medicated per MAR. Awaiting rehab placement
--- NOTE | 2023-09-13 20:07 | MHC.EDTECH ---
Brought patient a pitcher of ice water.
[2023-09-13 22:00] VITALS: BP 118/62; PULSE 96; RESP 16; TEMP 37; O2SAT 95
--- NOTE | 2023-09-13 22:05 | PC.NURSE ---
[id number] Nursing Note. Pt alert oriented x4. Moves upper body well, assist with turns. Buttocks pink, blanchable intact foam applied. Foam applied to bilateral heels for protection. Patient left lower leg is swollen, positive strong palpable pulses. Warm to touch. No redness noted. Knee immobilizer in place. Skin intact without redness under brace.
[2023-09-14] MEDS: oxyCODONE HCl Immed Release 5 MG TABLET 10 MG PO ×4 (00:33→18:51)
[2023-09-14] MEDS: Baclofen 20 MG TABLET PO ×4 (00:33→18:51)
--- NOTE | 2023-09-14 00:41 | PC.NURSE ---
Patient medicated with Baclofen 20 mg PO and Oxycodone 10 mg PO for 10/10 generalized pain. Patient requested pudding and crackers with meds.
--- NOTE | 2023-09-14 03:20 | MHC.EDTECH ---
Patient rang estrella and said his bed was wet from sweat ,care given and complete bed change ,Pt wanted to wear a long sleeve shirt ,which we put on him ,fresh sheet and blanket given and fresh ice water .
--- NOTE | 2023-09-14 03:32 | PC.NURSE ---
Patient requested bed linen change, reporting bed is wet d/t sweat. This RN assisted JOHN Hendricks tech to change bed linens and provided personal care to patient. Patient is afebrile. Patient reports generalized pain is at tolerable level 5/10 at present. Sal[place]a emptied urostomy bag with 1000 mL of urine output noted.
[2023-09-14 06:00] VITALS: BP 125/64; PULSE 68; RESP 16; TEMP 36.3; O2SAT 96
[2023-09-14] MEDS: Omeprazole 20 MG CAPSULE.DR PO (08:53)
--- NOTE | 2023-09-14 12:40 | PC.NURSE ---
assumed care of pt at 1100, pt resting quietly in bed, a&ox4, vss, eating lunch. medicated per OCT. no needs at this time.
[2023-09-14 13:49] VITALS: BP 129/73; PULSE 100; RESP 20; TEMP 36.8; O2SAT 97
--- NOTE | 2023-09-14 13:49 | MHC.CM.ED ---
Pt boarding in ED waiting for rehab placement: Review of acute rehab referrals: [facility] may have a bed on Friday: Zoe and Cody suggest to follow up on Friday as well. Pt updated on status. ED CM to follow
--- NOTE | 2023-09-14 16:05 | PC.NURSE ---
pt resting quietly, visitors at bedside.
--- NOTE | 2023-09-14 18:53 | PC.NURSE ---
pt medicated per OCT. urostomy bag emptied, pt given supplies for dental hygiene.
[2023-09-14 19:25] LABS: Appearance Urine Cloudy; Color Urine Yellow; Glucose Urine UA >=1000 mg/dL (Negative); Leukocyte Esterase Urine Large (3+) (Negative); Nitrite Urine Negative (Negative); PH 7.5 (5.0-9.0); UMIC TRIGGER UACC YES; Urine Blood Negative (Negative); Urine Ketones Negative (Negative); Urine Protein 30 (1+) mg/dL (Neg-Trace)
[2023-09-14 19:38] LABS: Bacteria Urine 4+ (None Seen); RBC Urine 0-2 /HPF (0-2); UACC Culture Trigger YES; WBC Urine >50 /HPF (0-5)
[2023-09-14 21:08] VITALS: BP 120/80; PULSE 94; RESP 16; TEMP 36.6; O2SAT 97
[2023-09-15] MEDS: Baclofen 20 MG TABLET PO ×4 (00:10→18:40)
[2023-09-15] MEDS: oxyCODONE HCl Immed Release 5 MG TABLET 10 MG PO ×4 (00:10→18:40)
[2023-09-15 05:05] VITALS: BP 105/65; PULSE 89; RESP 19; TEMP 36.7; O2SAT 97
--- NOTE | 2023-09-15 09:04 | MHC.CM.ED ---
Addendum entered by Rachael Thapa 09/15/23 12:37: Repeat CBC was decreased. Taylor MISHRA aware. She will order a unit of blood. Repeat CBC will be needed tomorrow morning. [facility] aware and agreeable. Addendum entered by Rachael Thapa 09/15/23 12:15: [facility] is able to offer a bed today. [facility] might be able to offer a bed. D/c options discussed with patient. Patient accepts bed at [facility]. Uma LIM booked for 330pm. [facility] with chart. Patient, Alecia RN and Taylor MISHRA aware. Original Note: Patient remains in ER overflow. OT eval completed. Clinical updates sent to [facility]oe and [facility]. Continue to monitor for d/c needs.
[2023-09-15] MEDS: Omeprazole 20 MG CAPSULE.DR PO (09:28)
[2023-09-15 12:13] LABS: MANUAL DIFF FLAG NO
[2023-09-15 12:14] LABS: Basophils Percent Auto 0.4 % (0-2); Eosinophils Absolute Auto 0.2 X10*3/uL (0.0-0.4); Eosinophils Percent Auto 3.1 % (0-4); Hematocrit 23.3 % (42.0-52.0); Hemoglobin 7.4 g/dl (14.0-18.0); Imm Gran Abs Auto 0.04 X10*3/uL (0.00-0.03); Imm Gran Pct Auto 0.5 % (0.0-0.4); Lymphocytes Absolute Auto 1.5 X10*3/uL (1.2-4.9); Mean Corpuscular HGB Conc 31.8 g/dl (31.0-36.0); Mean Corpuscular Hemoglobin 19.2 pg (27.0-33.0); Mean Platelet Volume 9.8 fL (9.4-12.4); Monocytes Absolute Auto 0.6 X10*3/uL (0.1-1.2); Monocytes Percent Auto 8.1 % (2-11); Neutrophils Absolute Auto 5.3 x10*3/uL (2.0-8.3); Neutrophils Percent Auto 68.9 % (45-73); Platelet Count 259 X10*3/uL (160-400); Red Blood Count 3.85 X10*6/uL (4.60-5.80); Red Cell Distribution Width 15.6 % (11.0-16.0); White Blood Count 7.7 X10*3/uL (4.8-10.8)
[2023-09-15 12:15] LABS: Mean Corpuscular Volume 60.5 fL (80.0-98.0)
[2023-09-15 14:32] VITALS: BP 122/72; PULSE 90; RESP 12; TEMP 36.7
[2023-09-15 14:45] VITALS: BP 122/72; PULSE 90; RESP 18; TEMP 36.7; O2SAT 94
[2023-09-15 14:46] VITALS: BP 108/64; PULSE 92; RESP 16; TEMP 36.7
[2023-09-15 14:47] VITALS: BP 119/75; PULSE 88; RESP 16; TEMP 36.6
--- NOTE | 2023-09-15 15:12 | PC.NURSE ---
Blood transfusion started without any complications. Lungs clear throughout. No reactions noted after first 15 minutes. VSS
[2023-09-15 20:00] VITALS: BP 122/67; PULSE 64; RESP 16; TEMP 36.1; O2SAT 97
--- NOTE | 2023-09-15 22:34 | MHC.EDTECH ---
OUT PUT EMPTY 1200ML FRESH WATER GIVEN .
[2023-09-16] MEDS: Baclofen 20 MG TABLET PO ×4 (00:06→19:01)
[2023-09-16] MEDS: oxyCODONE HCl Immed Release 5 MG TABLET 10 MG PO ×4 (00:06→19:01)
[2023-09-16 04:53] VITALS: BP 105/62; PULSE 76; RESP 19; TEMP 36.6; O2SAT 97
--- NOTE | 2023-09-16 06:34 | PC.NURSE ---
per GOLF BALL TRIMMER progress note plan for [facility] via ambulance pending results of repeat cbc. this RN ordered repeat cbc to be drawn this AM. pt offering no current complaints, plan of care ongoing.
--- NOTE | 2023-09-16 07:25 | PC.NURSE ---
PT IS A/O X 4 NO SOB/DEDE NOTED SPEAKS IN FULL SENTECES. PT IS SITTING UP IN BED. PT HAS A L KNEE/LEG IMMOBILIZER. MED EARLIER WITH OXYCODONE. WITH GOOD RESULT.
[2023-09-16] MEDS: Omeprazole 20 MG CAPSULE.DR PO (07:39)
[2023-09-16 08:14] VITALS: BP 116/69; PULSE 87; RESP 18; TEMP 36.7; O2SAT 96
--- NOTE | 2023-09-16 08:30 | MHC.EDTECH ---
pt ate 100% of his breakfast. Waiting for another tech from ED to help trasnfer PT to his wheelchair and wheel into the bathroom for morning routine. PT has everything set up in the bathroom. PT also declined sitting in the recliner when done with morning routine, he would like to avoid less transfers due to his left leg being in the brace.
--- NOTE | 2023-09-16 08:55 | MHC.CM.ED ---
Addendum entered by Rachael Thapa 09/16/23 11:53: Per Nahed TRIPATHI, patient will be admitted. [facility] made aware. Original Note: Patient remains in ER overflow. Received 1 unit of PRBC's on Friday. Repeat CBC ordered for today. If H&H is stable, patient will transport to [facility] at 2pm. Waiting for lab results. Continue to monitor for d/c needs.
--- NOTE | 2023-09-16 10:00 | PC.NURSE ---
.PT'S LAB RESULT - H/H 7.8/24.2. PT IS ASYMPTOMATIC WITH LAB VALUES. MLP ( POOJA) AWARE.
[2023-09-16 10:05] LABS: MANUAL DIFF FLAG NO
[2023-09-16 10:07] LABS: Basophils Percent Auto 0.5 % (0-2); Eosinophils Absolute Auto 0.3 X10*3/uL (0.0-0.4); Hematocrit 24.2 % (42.0-52.0); Hemoglobin 7.8 g/dl (14.0-18.0); Imm Gran Abs Auto 0.04 X10*3/uL (0.00-0.03); Imm Gran Pct Auto 0.5 % (0.0-0.4); Lymphocytes Absolute Auto 1.3 X10*3/uL (1.2-4.9); Lymphocytes Percent Auto 17.5 % (20-40); Mean Corpuscular HGB Conc 32.2 g/dl (31.0-36.0); Mean Corpuscular Hemoglobin 20.4 pg (27.0-33.0); Mean Platelet Volume 10.1 fL (9.4-12.4); Monocytes Absolute Auto 0.6 X10*3/uL (0.1-1.2); Monocytes Percent Auto 8.4 % (2-11); Neutrophils Absolute Auto 5.2 x10*3/uL (2.0-8.3); Neutrophils Percent Auto 69.1 % (45-73); Platelet Count 261 X10*3/uL (160-400); Red Blood Count 3.82 X10*6/uL (4.60-5.80); Red Cell Distribution Width 17.2 % (11.0-16.0); White Blood Count 7.6 X10*3/uL (4.8-10.8)
[2023-09-16 10:08] LABS: Mean Corpuscular Volume 63.4 fL (80.0-98.0)
--- NOTE | 2023-09-16 10:08 | MHC.EDTECH ---
Pt had his labs drawn. Pt is in the bathroom getting washed up. 500cc was emptied from his urostomy bag.
--- NOTE | 2023-09-16 12:20 | PC.NURSE ---
JAD GALLOWAY) AT BED AND STATED THAT BLOOD PRODUCT (RBC) IS ON HOLD AND NOT TO BE GIVEN TO THE PT AT THIS TIME.
--- NOTE | 2023-09-16 12:25 | PC.NURSE ---
FEMALE BATHROOM TILING PROFESSIONAL ADARSH) AT BEDSIDE WITH PT.
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
--- NOTE | 2023-09-16 12:39 | PC.NURSE ---
DR. GILBERT AT BEDSIDE. PT AWARE OF PLAN OF CARE FOR ADMISSION TO HOSP.
[2023-09-16] MEDS: Acetaminophen 325 MG TABLET 650 MG PO (13:18)
--- NOTE | 2023-09-16 13:20 | PM.PNORT ---
Subjective Subjective Date of Service: 09/16/23 <Val Cannon PA-C - Last Filed: 09/16/23 13:20> 09/16/23 <Jami Guzman PA-C - Last Filed: 09/16/23 18:00> Interval history: Left distal femur fracture Hospitalist consulted orthopedics due to drop in h/h and concerns for hematoma in the knee patient denies significant increase in swelling <Jami Guzman PA-C - Last Filed: 09/16/23 18:00> Physical Exam Vital Signs: Vital Signs: Last Vital Signs Temp 98.1 F 09/16/23 08:14 Pulse 87 09/16/23 08:14 Resp 18 09/16/23 08:14 BP 116/69 09/16/23 08:14 Pulse Ox 96 09/16/23 08:14 O2 Del Method Room Air 09/16/23 08:14 BMI result Body Mass Index 27.4 <Val Cannon PA-C - Last Filed: 09/16/23 13:20> Const: General: cooperative, healthy appearing, comfortable and no acute distress <Jami Guzman PA-C - Last Filed: 09/16/23 18:00> Extrem: Other: left leg brace intact. He does have hemarthrosis in the left knee swelling extends down into the lower extremity and into the foot he has good color and temperature No evidence of ecchymosis Calf if supple <Jami Guzman PA-C - Last Filed: 09/16/23 18:00> Procedures Date of Service Date of Service: 09/16/23 <Val Cannon PA-C - Last Filed: 09/16/23 13:20> 09/16/23 <Jami Guzman PA-C - Last Filed: 09/16/23 18:00> Progress Note: A&P Assessment and plan (1) Femoral distal fracture: Status: Acute <GABE Ivan Last Filed: 09/16/23 13:20> Assessment and Plan: Brace left femur-NWB Recommend elevate LLE above heart level No evidence of active bleeding in the left knee- no ecchymosis Patient did show me pictures of the leg the day he came to the ED which looks similiar No other treatment warranted from ortho standpoint at this time <Jami Guzman PA-C - Last Filed: 09/16/23 18:00> Time Spent With Patient Time: Total time managing care of this patient today ____ minutes. <Val Cannon PA-C - Last Filed: 09/16/23 13:20> Quality Stroke Does the patient have a stroke diagnosis?: No <Val Cannon PA-C - Last Filed: 09/16/23 13:20> VTE Prior VTE?: No <Val Cannon PA-C - Last Filed: 09/16/23 13:20> VTE Risk Level:: Medical - moderate - high <Val Cannon PA-C - Last Filed: 09/16/23 13:20> VTE Device Contraindication: N/A - Device Ordered <Val Cannon PA-C - Last Filed: 09/16/23 13:20> VTE Drug Contraindication: Treatment Not Indicated <Val Cannon PA-C - Last Filed: 09/16/23 13:20>
--- NOTE | 2023-09-16 13:22 | PC.NURSE ---
[facility] HAS LEFT THE BEDSIDE. THE PT'S HOME SCHOOL COORDINATOR IS AT THE BEDSIDE. MED X 1 WITH OXYCODONE 10MG PO AND APAP 650MG PO FOR 8/10 PAIN TO L FEMUR. PT MED X 1 WITH BACLOFEN FOR SPACITY.
--- NOTE | 2023-09-16 13:50 | PC.NURSE ---
PT'S CENTRAL OFFICE REPAIRER SUPERVISOR HAS LEFT THE BEDSIDE.
[2023-09-16 14:00] VITALS: BP 123/69; PULSE 88; RESP 18; TEMP 36.8; O2SAT 97
--- NOTE | 2023-09-16 14:20 | MHC.EDTECH ---
brought pt fresh ice water.
[2023-09-16] MEDS: 0.9 % Sodium Chloride Flush 3 ML SYRINGE IVFLUSH ×2 (14:57→21:05)
--- NOTE | 2023-09-16 15:29 | MHC.EDTECH ---
pt ate 100% of his lunch. pt is now resting quietly in bed.
[2023-09-16 16:00] VITALS: BP 145/75; PULSE 102; RESP 18; TEMP 36.9; O2SAT 98
--- NOTE | 2023-09-16 16:02 | PC.NURSE ---
LAB WORK IS BEING DONE.
[2023-09-16 16:08] LABS: Hemoglobin 7.7 g/dl (14.0-18.0)
--- NOTE | 2023-09-16 16:56 | PC.NURSE ---
STEFANIE (ORTHO PA-C) AT BEDSIDE, PT AWARE OF PLAN OF CARE.
[2023-09-16 17:49] VITALS: BMI 27.4
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
[2023-09-16 19:22] VITALS: BP 140/79; PULSE 93; RESP 17; TEMP 36.6; O2SAT 97
[2023-09-17] VITALS (13 sets, daily range): BP systolic 115–159; BP diastolic 63–80; PULSE 82–103; RESP 12–20; TEMP 36.1–37.1; O2SAT 94–98
[2023-09-17] MEDS: oxyCODONE HCl Immed Release 5 MG TABLET 10 MG PO ×4 (02:04→21:15)
[2023-09-17] MEDS: Baclofen 20 MG TABLET PO ×5 (02:04→21:15)
[2023-09-17 07:13] LABS: MANUAL DIFF FLAG NO
[2023-09-17 07:35] LABS: Basophils Percent Auto 0.5 % (0-2); Eosinophils Absolute Auto 0.3 X10*3/uL (0.0-0.4); Eosinophils Percent Auto 3.5 % (0-4); Hemoglobin 7.7 g/dl (14.0-18.0); Imm Gran Abs Auto 0.06 X10*3/uL (0.00-0.03); Imm Gran Pct Auto 0.7 % (0.0-0.4); Lymphocytes Absolute Auto 1.6 X10*3/uL (1.2-4.9); Lymphocytes Percent Auto 18.3 % (20-40); Mean Corpuscular HGB Conc 32.1 g/dl (31.0-36.0); Mean Corpuscular Hemoglobin 20.4 pg (27.0-33.0); Mean Platelet Volume 9.8 fL (9.4-12.4); Monocytes Absolute Auto 0.9 X10*3/uL (0.1-1.2); Monocytes Percent Auto 10.4 % (2-11); Neutrophils Absolute Auto 5.8 x10*3/uL (2.0-8.3); Neutrophils Percent Auto 66.6 % (45-73); Platelet Count 262 X10*3/uL (160-400); Red Blood Count 3.77 X10*6/uL (4.60-5.80); White Blood Count 8.6 X10*3/uL (4.8-10.8)
[2023-09-17 07:38] LABS: Anion Gap 13 (12-20); Blood Urea Nitrogen 13 mg/dL (9-16); Calcium 8.7 mg/dL (8.4-10.2); Carbon Dioxide 27 mmol/L (22-29); Chloride 101 mmol/L (96-108); Creatinine Clr Calc Pharmacy 130.8; Estimated Glomerular Filt Rate > 60; Glucose Random 153 mg/dL (60-115); Potassium 3.8 mmol/L (3.3-5.1); Sodium 137 mmol/L (135-145)
[2023-09-17 07:40] LABS: Mean Corpuscular Volume 63.7 fL (80.0-98.0)
[2023-09-17] MEDS: Omeprazole 20 MG CAPSULE.DR PO (09:37)
[2023-09-17] MEDS: Morphine Sulfate 4 MG/ML CARTRIDGE IVPUSH (10:14)
--- NOTE | 2023-09-17 12:42 | MHC.CM.PN ---
IMM 09/17/23 DELIVERED TO BEDSIDE PT IS NOW INPT AND NO LONGER OBS, PER HOSPITALIST PLAN FOR CT SCAN AND TRANSFUSION, NO PLAN FOR DC TODAY, [facility] UPDATED AND FOLLOWING, CM WILL CONT TO FOLLOW DC NEEDS.
[2023-09-17] MEDS: iohexoL 350 MG/ML 100 ML INFUS..BTL 85 ML IV (14:13)
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
[2023-09-17] MEDS: 0.9 % Sodium Chloride Flush 3 ML SYRINGE IVFLUSH ×2 (15:20→21:16)
[2023-09-18 00:49] VITALS: BP 139/79; PULSE 88; RESP 18; TEMP 36.1
[2023-09-18] MEDS: oxyCODONE HCl Immed Release 5 MG TABLET 10 MG PO ×3 (03:37→14:48)
[2023-09-18 04:00] VITALS: BP 122/71; PULSE 77; RESP 18; TEMP 36.4; O2SAT 99
[2023-09-18 07:05] LABS: MANUAL DIFF FLAG NO
[2023-09-18 07:10] VITALS: BP 120/70; PULSE 76; RESP 18; TEMP 36.3; O2SAT 98
[2023-09-18 07:13] LABS: Basophils Absolute Auto 0.1 X10*3/uL (0.0-0.2); Basophils Percent Auto 0.6 % (0-2); Eosinophils Absolute Auto 0.3 X10*3/uL (0.0-0.4); Eosinophils Percent Auto 3.4 % (0-4); Hematocrit 30.6 % (42.0-52.0); Hemoglobin 10.1 g/dl (14.0-18.0); Imm Gran Abs Auto 0.04 X10*3/uL (0.00-0.03); Imm Gran Pct Auto 0.5 % (0.0-0.4); Lymphocytes Absolute Auto 1.4 X10*3/uL (1.2-4.9); Lymphocytes Percent Auto 17.4 % (20-40); Mean Corpuscular Hemoglobin 22.4 pg (27.0-33.0); Mean Platelet Volume 9.6 fL (9.4-12.4); Monocytes Percent Auto 12.1 % (2-11); Neutrophils Absolute Auto 5.2 x10*3/uL (2.0-8.3); Platelet Count 272 X10*3/uL (160-400); Red Cell Distribution Width 24.1 % (11.0-16.0); White Blood Count 7.9 X10*3/uL (4.8-10.8)
[2023-09-18 07:28] LABS: Alanine Aminotransferase 17 U/L (0-40); Albumin Level 3.5 g/dL (3.5-5.0); Alkaline Phosphatase 74 U/L (39-117); Anion Gap 13 (12-20); Aspartate Amino Transferase 16 U/L (5-37); Blood Urea Nitrogen 14 mg/dL (9-16); Calcium 9.2 mg/dL (8.4-10.2); Carbon Dioxide 25 mmol/L (22-29); Chloride 103 mmol/L (96-108); Creatinine Clr Calc Pharmacy 126.6; Estimated Glomerular Filt Rate > 60; Glucose Fasting 192 mg/dL (60-99); Potassium 3.9 mmol/L (3.3-5.1); Sodium 137 mmol/L (135-145); Total Protein 6.8 g/dL (6.5-8.0)
[2023-09-18 07:40] VITALS: BP 122/71; PULSE 77; RESP 18; TEMP 36.4
[2023-09-18] MEDS: Omeprazole 20 MG CAPSULE.DR PO (09:27)
[2023-09-18] MEDS: Baclofen 20 MG TABLET PO ×2 (09:27→14:48)
[2023-09-18] MEDS: 0.9 % Sodium Chloride Flush 3 ML SYRINGE IVFLUSH (09:29)
[2023-09-18 11:14] VITALS: BP 132/70; PULSE 88; RESP 18; TEMP 36.3; O2SAT 98
[2023-09-18 11:17] VITALS: BP 122/71; PULSE 77
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
--- NOTE | 2023-09-18 12:03 | MHC.CM.PN ---
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 Addendum entered by Eri Escalante RN 09/18/23 13:19: PT TO TRANSPORT AT 3:30PM Original Note: PT MEDICALLY CLEARED FOR DC TO ACUTE REHAB AT [facility] W/[facility] FOR TRANSPORT, TIME OF TRNASPORT PENDING
== END 2023-09-18 16:27 | DRG 534 ==
LOC: HO.ED 09-15 12:47 → HO.EDOVER 09-16 12:38 → HO.IMC 09-16 16:51
PROVIDERS: Hospitalist; Physician Assistant; Registered Nurse Emergency; Admitting Provider Physician Assistant; Emergency Provider Emergency Medicine; PCP Internal Medicine Medical Oncology; Visit Provider Physician Assistant Medical
DX: S72.402A Unspecified fracture of lower end of left femur, initial encounter for closed fracture (principal); G82.21 Paraplegia, complete; D62 Acute posthemorrhagic anemia; W05.0XXA Fall from non-moving wheelchair, initial encounter; E83.119 Hemochromatosis, unspecified; F10.21 Alcohol dependence, in remission; S24.102S Unspecified injury at T2-T6 level of thoracic spinal cord, sequela; W34.00XS Accidental discharge from unspecified firearms or gun, sequela; Z20.822 Contact with and (suspected) exposure to COVID-19; Z79.899 Other long term (current) drug therapy
CPT/HCPCS: 36415; 73502; 73560; 73600; 73701; 80048; 80053; 81001; 85014; 85018; 85025; 85027; 85610; 86850; 86900; 86901; 86923; 87086; 87635; 93005; 97161; 97166; 97530; 97535; 99222; 99285; J2270; J2405; P9016; Q9967

== ENCOUNTER → 2023-09-12 10:02 | Outpatient (BNV) | payer MEDICARE, MEDICAID, SELFPAY | PROVIDERS: Emergency Provider Emergency Medicine; PCP Internal Medicine Medical Oncology; Visit Provider Physician Assistant | DX: S72.402A Unspecified fracture of lower end of left femur, initial encounter for closed fracture (principal) | CPT/HCPCS: 99221; 99231 ==

== ENCOUNTER → 2023-09-12 10:57 | Outpatient (BNV) | payer MEDICARE, MEDICAID, SELFPAY | PROVIDERS: Emergency Provider Emergency Medicine; PCP Internal Medicine Medical Oncology; Visit Provider Internal Medicine Cardiovascular Disease | DX: S72.402A Unspecified fracture of lower end of left femur, initial encounter for closed fracture (principal) | CPT/HCPCS: 93010 ==

== ENCOUNTER → 2023-09-16 12:25 | Outpatient (BNV) | payer MEDICARE, MEDICAID, SELFPAY | PROVIDERS: Admitting Provider Physician Assistant; Emergency Provider Emergency Medicine; PCP Internal Medicine Medical Oncology; Visit Provider Physician Assistant | DX: S72.409A Unspecified fracture of lower end of unspecified femur, initial encounter for closed fracture (principal); S80.12XA Contusion of left lower leg, initial encounter; E83.119 Hemochromatosis, unspecified; Z99.3 Dependence on wheelchair | CPT/HCPCS: 99222; 99233; 99239 ==

== ENCOUNTER 2023-09-25 13:00 | Outpatient (AMB) | payer MEDICARE, MEDICAID, SELFPAY ==
--- NOTE | 2023-09-25 13:10 | MHC.OFFVIS ---
Intake Intake Visit Reasons: [facility] [facility]-left femur fx-follow up Intake Note: Brain is a 58 year old male who presents today for a fracture care visit for Left Femur Fracture s/p fall on 09/02/23. Hx of left hip fracture in 2012 with repair. Patient reports that his leg is still swollen. He is being treated for a blood clot. He is still not considering amputation Allergies No Known Allergies [No Known Allergies*] Allergy (Verified 09/25/23 13:13) HPI [facility] [facility]-left femur fx-follow up HPI Details Brain is a 58 year old man who presents to discuss his left femur fracture, after a fall, DOI: 09/02/23. He says h is currently being treated for a blood clot, and his leg is still swollen. He is very independent and is transferring with the knee brace. The knee brace is not fitting and difficult. There is a sore on his left heel that is being managed by the facility is is currently at. It is dressed with a protective pad. [facility] Medical History Hemochromatosis Femoral distal fracture Clostridioides difficile diarrhea Paraplegia Surgical History History of urostomy Social History Household Members: None Household Members Other:: daughter occasionally Housing: House Do you presently have visiting nurse or other home services: No Alcohol intake: former Patient Tobacco Use Status: Never used Tobacco Tobacco use type: Cigar service: No Review of Systems Const All systems reviewed & are unremarkable except as noted in HPI and below Physical Exam Const General: no acute distress, alert and awake Orientation/consciousness: patient oriented x3 HEENT Head: Yes normocephalic and Yes atraumatic Eyes EOM: EOMs intact bilaterally Resp Effort & Inspection: normal respiratory effort and able to speak in complete sentences Cardio Jugular venous distension: no JVD Skin General skin exam: turgor normal Rashes: no rashes Neuro General: patient oriented x3 Extrem Other: Unchanged soft tissue swelling left lower leg. The thigh is soft and minimally swollen. The foot is warm and well perfused. (It has always been dopplerable but palpable pulses have not been present since I have seen him and he states that the pulses are easily dopplerable at the facility he is residing at). Psych Appearance: grossly normal Affect: normal affect Attitude: cooperative Assessment & Plan Assessment & Plan (1) Femoral distal fracture: Code(s): S72.409A - Unspecified fracture of lower end of unspecified femur, initial encounter for closed fracture Plan: This is a very difficult situation as he is insensate and has a left femur fracture and a blood clot ( as per patient)> He is now taking Eliquis. He wants to drive and leave the rehab facility. I do not think this is a good idea. I had a long discussion with him about his fracture. I recommend wearing an immobilizer for transfers but not while is bed. We fashioned an immobilizer with padding and he needs daily wound checks. Cont PT/OT. Follow up in 3 weeks for xray. (2) Paraplegia following spinal cord injury: Code(s): G82.20 - Paraplegia, unspecified Plan Prepared for Jaime Buitrago MD by Matti Whittington, medical microbiologist, on 09/21/23 at 1:17 PM, EST. Coding Level of Care Code Est Pt Level 4 (86193) Diagnoses Femoral distal fracture S72.409A Paraplegia following spinal cord injury G82.20
== END 2023-09-25 14:00 | disposition home or self-care (01) ==
PROVIDERS: PCP Internal Medicine Medical Oncology; Visit Provider Orthopaedic Surgery
DX: S72.409A Unspecified fracture of lower end of unspecified femur, initial encounter for closed fracture (principal); G82.20 Paraplegia, unspecified
CPT/HCPCS: 99214

== ENCOUNTER → 2023-09-25 13:00 | Outpatient (BNVA) | payer OTHER, MEDICARE, MEDICAID, SELFPAY | PROVIDERS: PCP Internal Medicine Medical Oncology; Visit Provider Orthopaedic Surgery | DX: S72.402D Unspecified fracture of lower end of left femur, subsequent encounter for closed fracture with routine healing (principal); G82.20 Paraplegia, unspecified; Z79.01 Long term (current) use of anticoagulants | CPT/HCPCS: 99212 ==

== ENCOUNTER 2023-10-16 09:18 | Outpatient (REF) | payer MEDICARE, MEDICAID, SELFPAY | END 2023-10-16 09:19 | disposition home or self-care (01) | LOC: HO.HOSX 09:18 | PROVIDERS: Visit Provider Orthopaedic Surgery | DX: Z13.89 Encounter for screening for other disorder (principal) ==

== ENCOUNTER 2023-10-19 22:41 | Inpatient (IN) | payer MEDICARE, MEDICAID, SELFPAY ==
--- NOTE | ~2023-10-19 | XR_ITS ---
EXAMINATION: XR CHEST CLINICAL INFORMATION: Fever COMPARISON: Previous chest x-ray February 2023 TECHNIQUE: Frontal view of the chest was obtained. FINDINGS: The cardiac and mediastinal contours are normal. The lungs are clear. No pleural effusion or pneumothorax. Surgical hardware in the thoracic spine. XR/XR chest 1V IMPRESSION: No evidence for acute disease in the chest.
[2023-10-19 23:12] VITALS: BP 111/65; PULSE 116; RESP 18; TEMP 37.7; O2SAT 99; BMI 27.4
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
[2023-10-20 00:50] LABS: Hematocrit 33.4 % (42.0-52.0); Hemoglobin 10.9 g/dl (14.0-18.0); Mean Corpuscular HGB Conc 32.6 g/dl (31.0-36.0); Mean Corpuscular Volume 64.5 fL (80.0-98.0); Mean Platelet Volume 10.3 fL (9.4-12.4); Platelet Count 280 X10*3/uL (160-400); Red Blood Count 5.18 X10*6/uL (4.60-5.80); Red Cell Distribution Width 17.6 % (11.0-16.0); White Blood Count 16.2 X10*3/uL (4.8-10.8)
[2023-10-20 00:52] LABS: Appearance Urine Cloudy; Color Urine Yellow; Glucose Urine UA Negative (Negative); Leukocyte Esterase Urine Large (3+) (Negative); Nitrite Urine Positive (Negative); Specific Gravity - Urine 1.015 (1.005-1.025); UMIC TRIGGER UACC YES; Urine Blood Negative (Negative); Urine Ketones Negative (Negative); Urine Protein Trace mg/dL (Neg-Trace)
[2023-10-20 01:00] LABS: Bacteria Urine 4+ (None Seen); RBC Urine 0-2 /HPF (0-2); UACC Culture Trigger YES; WBC Urine >50 /HPF (0-5)
[2023-10-20 01:02] LABS: Anion Gap 11 (12-20); Blood Urea Nitrogen 19 mg/dL (9-16); Calcium 9.1 mg/dL (8.4-10.2); Carbon Dioxide 25 mmol/L (22-29); Chloride 101 mmol/L (96-108); Estimated Glomerular Filt Rate > 60; Glucose Random 211 mg/dL (60-115); Potassium 3.8 mmol/L (3.3-5.1); Sodium 133 mmol/L (135-145)
[2023-10-20] MEDS: cefTRIAXone sodium 1 GM in 0.9 % Sodium Chloride 50 ML IV (01:44)
--- NOTE | 2023-10-20 01:50 | PC.NURSE ---
, Dr. Tamez, declined to initiate sepsis protocol although pt's white count and HR is elevated with fever at home. Charge nurse, Maryan braswell. IV fluids and 1st dose of antibiotics running. Plan of care ongoing.
[2023-10-20] MEDS: 0.9 % Sodium Chloride 2,500 ML 833.33 ML IV (01:53)
[2023-10-20] MEDS: Apixaban 5 MG TABLET PO ×3 (01:54→21:27)
[2023-10-20] MEDS: Ibuprofen 800 MG TABLET PO (01:54)
[2023-10-20] MEDS: oxyCODONE HCl Immed Release 5 MG TABLET 10 MG PO ×3 (01:54→21:35)
[2023-10-20 01:55] LABS: Lactic Acid 1.1 mmol/L (0.5-2.0)
[2023-10-20] MEDS: Acetaminophen 325 MG TABLET 975 MG PO (01:55)
--- NOTE | 2023-10-20 01:59 | ED.GENADULT ---
HPI - General Adult General Chief complaint: General Medical Stated complaint: fever, chills, uti? Time Seen by Provider: 10/20/23 00:21 Source: patient Mode of arrival: EMS Limitations: no limitations History of Present Illness HPI narrative: Patient paraplegic with urostomy with recent left femur fracture Eliquis for DVT discharge home rehab 2 weeks ago lives alone noticed fever and chills started earlier today temperature of 102 degrees at home in the ER was 99.9 Related Data Home Medications Medication Instructions Recorded Confirmed baclofen 20 mg tablet 20 mg PO QID PRN Muscle Pain 03/17/23 09/12/23 ibuprofen 800 mg tablet 800 mg PO BID PRN Pain (Scale 03/17/23 09/12/23 Score 1-3) oxycodone 10 mg tablet 10 mg PO Q6H PRN Pain (Scale Score 03/17/23 09/12/23 4-6) pantoprazole 40 mg tablet,delayed 40 mg PO DAILY 03/17/23 09/12/23 release Allergies Allergy/AdvReac Type Severity Reaction Status Date / Time No Known Allergies Allergy Verified 10/19/23 23:11 [No Known Allergies*] Review of Systems Review of Systems: Yes all other systems are reviewed and are negative PMFSH Past Medical History Medical History Hemochromatosis Femoral distal fracture Clostridioides difficile diarrhea Paraplegia Surgical History History of urostomy Social History Social History Household Members: None Household Members Other:: daughter occasionally Housing: House Do you presently have visiting nurse or other home services: No Alcohol intake: former Patient Tobacco Use Status: Never used Tobacco Tobacco use type: Cigar Advance Directives: No Advance Directives Information Provided: No service: No Physical Exam ED Vital Signs: Vital Signs - 24 hr 10/19/23 23:12 10/20/23 02:09 Temperature 99.9 F 99.0 F Pulse Rate 116 H 93 Respiratory Rate 18 18 Blood Pressure 111/65 123/69 Pulse Oximetry 99 98 Oxygen Delivery Method Room Air Room Air BMI result Body Mass Index 27.4 Appearance: Alert. Oriented X3. No acute distress. Febrile to touch Eyes: PERRLA, No Nystagmus ENT: Pharynx normal. Oral Mucosa moist Neck: Normal inspection. Neck supple. CVS: Normal heart rate and rhythm. Pulses normal. Respiratory: No respiratory distress. Equal air entry bilateral, no wheezing/rales/rhonchi Abdomen: Soft and nontender. Bowel sounds are present, no mass palpable, no CVA tenderness Skin: Skin warm and dry. Normal skin color. Normal skin turgor. Extremities bilateral leg edema left more than right Neuro: Oriented X 3. Paraplegic below T3 Medications Administered Generic Name Dose Route Start Last Admin Trade Name Freq PRN Reason Stop Dose Admin Sodium Chloride 2,500 mls @ 833.3333 mls/hr 10/20/23 01:22 10/20/23 01:53 Ns IV 10/20/23 04:21 833.33 mls/hr .Q3H STA Administration Discontinued Medications Generic Name Dose Route Start Last Admin Trade Name Freq PRN Reason Stop Dose Admin Acetaminophen 975 mg 10/20/23 00:53 10/20/23 01:55 Acetaminophen 325 Mg Tablet PO 10/20/23 00:54 975 mg ONCE ONE Administration Apixaban 5 mg 10/20/23 01:21 10/20/23 01:54 Apixaban 5 Mg Tablet PO 10/20/23 01:22 5 mg ONCE ONE Administration Ceftriaxone Sodium 1 gm/ 50 mls @ 100 mls/hr 10/20/23 00:53 10/20/23 01:44 Sodium Chloride IV 10/20/23 01:22 100 mls/hr ONCE ONE Administration Ibuprofen 800 mg 10/20/23 00:53 10/20/23 01:54 Ibuprofen 800 Mg Tablet PO 10/20/23 00:54 800 mg ONCE ONE Administration Oxycodone HCl 10 mg 10/20/23 01:21 10/20/23 01:54 Oxycodone Hcl Immed Release 5 Mg Tablet PO 10/20/23 01:22 10 mg ONCE ONE Administration Medical Decision Making Medical Decision Making [facility] Narrative: Patient with fever with tachycardia with UTI meeting the criteria for sepsis not septic shock received IV fluids and IV antibiotics patient had previous E coli which was sensitive to to Rocephin which we will give tonight admit as patient had bacteremia in the past Differential Diagnosis Differential Diagnoses: The differential diagnosis associated with the presentation includes UTI/viral infection/bacterial infection/bacteremia Admission/Observation Consideration of admission/observation: Escalation of care including admission/observation considered Consult Healthcare Provider Management of the patient was discussed with: Hospitalist Lab Data MDM Lab Attestation statement: I reviewed the patient's lab results. 10/20/23 00:41 10/20/23 00:41 Labs: Lab Results 10/20/23 10/20/23 10/20/23 Range/Units 00:41 00:43 01:39 WBC 16.2 H (4.8-10.8) X10*3/uL RBC 5.18 (4.60-5.80) X10*6/uL Hgb 10.9 L (14.0-18.0) g/dl Hct 33.4 L (42.0-52.0) % MCV 64.5 L (80.0-98.0) fL MCH 21.0 L (27.0-33.0) pg MCHC 32.6 (31.0-36.0) g/dl RDW 17.6 H (11.0-16.0) % Plt Count 280 (160-400) X10*3/uL MPV 10.3 (9.4-12.4) fL Absolute Nucleated RBC 0.000 (0.0-0.012) X10*3/uL Nucleated RBC % (auto) 0.0 (0.0-0.2) /100WBC Sodium 133 L (135-145) mmol/L Potassium 3.8 (3.3-5.1) mmol/L Chloride 101 (96-108) mmol/L Carbon Dioxide 25 (22-29) mmol/L Anion Gap 11 L (12-20) BUN 19 H (9-16) mg/dL Creatinine 0.84 (0.5-1.4) mg/dL Estim Creat Clear Calc 95.0 Estimated GFR > 60 Random Glucose 211 H (60-115) mg/dL Lactic Acid 1.1 (0.5-2.0) mmol/L Calcium 9.1 (8.4-10.2) mg/dL Urine Color Yellow Urine Appearance Cloudy Urine pH 7.0 (5.0-9.0) Ur Specific [place] 1.015 (1.005-1.025) Urine Protein Trace (Neg-Trace) mg/dL Urine Glucose (UA) Negative (Negative) mg/dL Urine Ketones Negative (Negative) mg/dL Urine Blood Negative (Negative) Urine Nitrite Positive H (Negative) Ur Leukocyte Esterase Large (3+) H (Negative) Urine RBC 0-2 (0-2) /HPF Urine WBC >50 H (0-5) /HPF Ur Squamous Epith Cells 3-5 (0-2) /HPF Urine Bacteria 4+ (None Seen) Hyaline Casts 6-10 (0-2) /LPF Critical Care Time Critical Care Time Critical Care Time: Yes Total Critical Care Time: 55 Attestation: The patient was critically ill with a high probability of imminent or life threatening deterioration. I spent greater than 60???minutes of discontinuous time evaluating the patient,delivering critical care at the bedside, discussing and evaluating pertinent data with consultants. Critical care time does not include time spent performing separately billable procedures or teaching. Total time spent performing critical care was 55???minutes. Discharge Plan Discharge Clinical Impression: Acute UTI Patient Disposition: Admitted As Inpatient
[2023-10-20 02:09] VITALS: BP 123/69; PULSE 93; RESP 18; TEMP 37.2; O2SAT 98
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
[2023-10-20] MEDS: Baclofen 20 MG TABLET PO ×4 (02:23→21:35)
[2023-10-20 06:24] LABS: MANUAL DIFF FLAG NO
[2023-10-20 06:29] LABS: Basophils Percent Auto 0.2 % (0-2); Eosinophils Absolute Auto 0.1 X10*3/uL (0.0-0.4); Eosinophils Percent Auto 0.5 % (0-4); Hematocrit 31.3 % (42.0-52.0); Imm Gran Abs Auto 0.09 X10*3/uL (0.00-0.03); Imm Gran Pct Auto 0.6 % (0.0-0.4); Lymphocytes Absolute Auto 1.3 X10*3/uL (1.2-4.9); Mean Corpuscular HGB Conc 31.9 g/dl (31.0-36.0); Mean Corpuscular Hemoglobin 21.1 pg (27.0-33.0); Mean Corpuscular Volume 65.9 fL (80.0-98.0); Mean Platelet Volume 10.7 fL (9.4-12.4); Monocytes Absolute Auto 1.5 X10*3/uL (0.1-1.2); Monocytes Percent Auto 9.1 % (2-11); Neutrophils Absolute Auto 13.3 x10*3/uL (2.0-8.3); Neutrophils Percent Auto 81.6 % (45-73); Platelet Count 254 X10*3/uL (160-400); Red Blood Count 4.75 X10*6/uL (4.60-5.80); Red Cell Distribution Width 17.8 % (11.0-16.0); White Blood Count 16.3 X10*3/uL (4.8-10.8)
[2023-10-20 07:05] LABS: Anion Gap 11 (12-20); Blood Urea Nitrogen 16 mg/dL (9-16); Calcium 8.3 mg/dL (8.4-10.2); Carbon Dioxide 23 mmol/L (22-29); Chloride 105 mmol/L (96-108); Creatinine Clr Calc Pharmacy 102.3; Estimated Glomerular Filt Rate > 60; Glucose Random 165 mg/dL (60-115); Iron 57 mcg/dL (45-160); Percent Iron Saturation 34 % (15-50); Potassium 4.1 mmol/L (3.3-5.1); Sodium 135 mmol/L (135-145); Total Iron Binding Capacity 168 mcg/dL (228-428); Unsaturated Iron Binding 111 ug/dL
[2023-10-20 07:36] LABS: Estimated Average Glucose 134 mg/dL; Hemoglobin A1c % 6.3 % (<6.0)
[2023-10-20 07:48] LABS: Glucose, Whole Blood 207 mg/dL (60-115)
--- NOTE | 2023-10-20 08:07 | PHA.MEDREC ---
Pharmacy Consult ? Medication Reconciliation Pharmacy has completed the medication reconciliation. Spoke to patient and confirmed medication list.
[2023-10-20] MEDS: 0.9 % Sodium Chloride Flush 3 ML SYRINGE IVFLUSH ×3 (08:14→21:47)
[2023-10-20 08:16] VITALS: BP 95/59; PULSE 89; RESP 18; TEMP 36.6; O2SAT 98
[2023-10-20] MEDS: Omeprazole 40 MG CAPSULE.DR PO (08:44)
[2023-10-20] MEDS: Insulin Lispro 100 UNIT/ML 3 ML VIAL SUBCUT ×3 (08:45→21:27)
[2023-10-20] MEDS: Acetaminophen 325 MG TABLET 650 MG PO (08:45)
--- NOTE | 2023-10-20 12:22 | MHC.CM.PN ---
Attempted to meet with patient in regards to discharge planning. Patient currently sleeping. Will attempt to meet again. Continue to monitor for d/c needs.
[2023-10-20 13:40] LABS: Glucose, Whole Blood 143 mg/dL (60-115)
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
[2023-10-20 17:43] VITALS: BP 123/72; PULSE 88; RESP 16; TEMP 36.8; O2SAT 96
[2023-10-20 18:22] LABS: Glucose, Whole Blood 210 mg/dL (60-115)
--- NOTE | 2023-10-20 18:40 | PC.NURSE ---
pt change management to hospital bed, medicated per mar, left lower leg swollen with plus3 edema.
--- NOTE | 2023-10-20 18:58 | MHC.EDTECH ---
Pt was moved over to a hospital bed, the pt is clean and dry, the pt did not need anything else.
[2023-10-20 20:09] VITALS: BP 121/78; PULSE 102; RESP 18; TEMP 36.9; O2SAT 98
[2023-10-20 21:00] VITALS: BP 134/70; PULSE 102; RESP 18; TEMP 36.8; O2SAT 97
[2023-10-20 21:09] LABS: Glucose, Whole Blood 215 mg/dL (60-115)
[2023-10-20] MEDS: Melatonin 3 MG TABLET 6 MG PO (21:35)
[2023-10-21] VITALS: BMI 27.8
[2023-10-21] MEDS: oxyCODONE HCl Immed Release 5 MG TABLET 10 MG PO ×4 (03:22→22:28)
[2023-10-21] MEDS: Baclofen 20 MG TABLET PO ×4 (03:24→22:28)
[2023-10-21 03:53] VITALS: BP 137/73; PULSE 98; RESP 16; TEMP 36.9; O2SAT 99
[2023-10-21] MEDS: Omeprazole 40 MG CAPSULE.DR PO (06:14)
[2023-10-21] MEDS: cefTRIAXone sodium 1 GM in 0.9 % Sodium Chloride 50 ML IV (06:15)
[2023-10-21 06:29] LABS: Hematocrit 29.5 % (42.0-52.0); Hemoglobin 9.5 g/dl (14.0-18.0); Mean Corpuscular HGB Conc 32.2 g/dl (31.0-36.0); Mean Corpuscular Volume 65.3 fL (80.0-98.0); Mean Platelet Volume 10.9 fL (9.4-12.4); Platelet Count 234 X10*3/uL (160-400); Red Blood Count 4.52 X10*6/uL (4.60-5.80); Red Cell Distribution Width 17.6 % (11.0-16.0); White Blood Count 13.1 X10*3/uL (4.8-10.8)
[2023-10-21 07:42] VITALS: BP 124/61; PULSE 106; RESP 18; TEMP 36.8; O2SAT 96
[2023-10-21 07:44] LABS: Glucose, Whole Blood 220 mg/dL (60-115)
[2023-10-21] MEDS: Insulin Lispro 100 UNIT/ML 3 ML VIAL SUBCUT ×4 (08:08→21:16)
[2023-10-21] MEDS: Apixaban 5 MG TABLET PO ×2 (08:09→21:16)
[2023-10-21] MEDS: 0.9 % Sodium Chloride Flush 3 ML SYRINGE IVFLUSH ×3 (08:10→21:16)
--- NOTE | 2023-10-21 10:47 | MHC.CM.PN ---
IMM 10/21/23 Male DX UTI PMH Para recent admit DX L Femer FX. Patient lives by himself. He was independent with equipment ADLs, prior to the Femur FX. He is not able to drive, at this time due to the LE FX. He is wearing a Splint/Immobilizer. The patient reports that he is active with [facility]. A referral has been sent for resumption of services at discharge. DP Resumption of [facility]. The patient will arrange for transport home. A HCP has been documented, and scanned into EMR.
[2023-10-21 12:14] LABS: Glucose, Whole Blood 251 mg/dL (60-115)
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
[2023-10-21 15:07] VITALS: BP 109/66; PULSE 81; RESP 15; TEMP 36.9; O2SAT 98
[2023-10-21 16:03] LABS: Adenovirus PCR Not Detected (Not Detect.); Bordetella parapertussis PCR Not Detected (Not Detect.); Bordetella pertussis PCR Not Detected (Not Detect.); Chlamydia pneumoniae PCR Not Detected (Not Detect.); Coronavirus 229E PCR Not Detected (Not Detect.); Coronavirus HKU1 PCR Not Detected (Not Detect.); Coronavirus NL63 PCR Not Detected (Not Detect.); Coronavirus OC43 PCR Not Detected (Not Detect.); Human metapneumovirus PCR Not Detected (Not Detect.); Influenza A PCR Not Detected (Not Detect.); Influenza B PCR Not Detected (Not Detect.); Mycoplasma pneumoniae PCR Not Detected (Not Detect.); Parainfluenza 1 PCR Not Detected (Not Detect.); Parainfluenza 2 PCR Not Detected (Not Detect.); Parainfluenza 3 PCR Not Detected (Not Detect.); Parainfluenza 4 PCR Not Detected (Not Detect.); RSV PCR Not Detected (Not Detect.); Rhino/Enterovirus PCR Not Detected (Not Detect.)
[2023-10-21 16:11] LABS: Glucose, Whole Blood 196 mg/dL (60-115)
[2023-10-21 16:18] LABS: SARS-CoV-2 PCR Not Detected (Not Detect.)
[2023-10-21 20:00] VITALS: BP 137/71; PULSE 78; RESP 18; TEMP 36.9; O2SAT 97
[2023-10-21 21:03] LABS: Glucose, Whole Blood 232 mg/dL (60-115)
[2023-10-22 03:42] VITALS: BP 122/78; PULSE 86; RESP 16; TEMP 36.2; O2SAT 98
[2023-10-22] MEDS: oxyCODONE HCl Immed Release 5 MG TABLET 10 MG PO ×3 (04:21→14:55)
[2023-10-22] MEDS: Baclofen 20 MG TABLET PO ×3 (04:21→14:55)
[2023-10-22] MEDS: Omeprazole 40 MG CAPSULE.DR PO (04:24)
[2023-10-22 04:32] LABS: Glucose, Whole Blood 183 mg/dL (60-115)
[2023-10-22 08:00] VITALS: BP 102/60; PULSE 67; RESP 18; TEMP 36.4; O2SAT 97
[2023-10-22 08:08] LABS: Glucose, Whole Blood 176 mg/dL (60-115)
[2023-10-22] MEDS: Insulin Lispro 100 UNIT/ML 3 ML VIAL SUBCUT ×2 (08:15→12:40)
[2023-10-22 08:28] LABS: Hematocrit 27.3 % (42.0-52.0); Hemoglobin 8.5 g/dl (14.0-18.0); Mean Corpuscular HGB Conc 31.1 g/dl (31.0-36.0); Mean Corpuscular Hemoglobin 20.2 pg (27.0-33.0); Mean Platelet Volume 10.6 fL (9.4-12.4); Platelet Count 221 X10*3/uL (160-400); Red Cell Distribution Width 17.4 % (11.0-16.0); White Blood Count 6.8 X10*3/uL (4.8-10.8)
[2023-10-22] MEDS: Apixaban 5 MG TABLET PO (09:22)
--- NOTE | 2023-10-22 10:31 | MHC.CM.PN ---
IMM 10/21/23 Male 58 DX UTI is discharged today. [facility] will resume services at discharge. BLS will transport home 3pm pick is scheduled.
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
[2023-10-22 12:20] LABS: Glucose, Whole Blood 202 mg/dL (60-115)
== END 2023-10-22 16:14 | disposition home or self-care (01) | DRG 864 ==
LOC: HO.ED 10-20 02:13 → HO.EDOVER 10-20 04:21 → HO.S3 10-20 20:03
PROVIDERS: Admitting Provider Student in an Organized Health Care Education/Training Program; Emergency Provider Internal Medicine; PCP Internal Medicine; Visit Provider Hospitalist
DX: R50.9 Fever, unspecified (principal); G82.20 Paraplegia, unspecified; R65.10 Systemic inflammatory response syndrome (SIRS) of non-infectious origin without acute organ dysfunction; Z20.822 Contact with and (suspected) exposure to COVID-19; S24.102S Unspecified injury at T2-T6 level of thoracic spinal cord, sequela; W34.00XS Accidental discharge from unspecified firearms or gun, sequela; R73.9 Hyperglycemia, unspecified; K21.9 Gastro-esophageal reflux disease without esophagitis; G89.29 Other chronic pain; D50.9 Iron deficiency anemia, unspecified; Z86.718 Personal history of other venous thrombosis and embolism; Z87.440 Personal history of urinary (tract) infections; Z74.01 Bed confinement status; Z79.01 Long term (current) use of anticoagulants; Z79.891 Long term (current) use of opiate analgesic; Z79.899 Other long term (current) drug therapy
CPT/HCPCS: 36415; 71045; 80048; 81001; 82947; 83036; 83540; 83605; 85025; 85027; 87040; 87086; 87633; 99285; J0696

== ENCOUNTER → 2023-10-20 00:27 | Outpatient (BNV) | payer MEDICARE, MEDICAID, SELFPAY | PROVIDERS: Emergency Provider Internal Medicine; PCP Internal Medicine; Visit Provider Student in an Organized Health Care Education/Training Program | DX: N39.0 Urinary tract infection, site not specified (principal); G82.20 Paraplegia, unspecified | CPT/HCPCS: 99222; 99233; 99239; 99499 ==

== ENCOUNTER 2024-10-15 10:28 | Outpatient (AMB) | payer MEDICARE, MEDICAID, SELFPAY ==
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
--- OUTSIDE RECORDS SUMMARY | 2024-10-15 11:54 | XMS_ITS ---
Author Organization Felix Trevizo DO [facility] Address [address] [place], [place] [id number] Care Team Providers Care Clockmaker Name Role Phone SanthoshFelix Primary Care Provider [phone] REASON FOR VISIT Refills MEDICATIONS Medication SIG (Take, Route, Fr equency, Duration) Notes Start Date End Date Status Baclofen 20 MG 1 tablet as needed O rally Four times a day for 30 days Active Encounters Encounter Location Date Provider Diagnosis Felix Trevizo DO [facility] [address] [place], [place] [id number] 08/02/2024 Felix Trevizo PLAN OF TREATMENT Medication Medication Name Sig Start Date Stop Date Notes Baclofen 20 MG 1 tablet as needed O rally Four times a day for 30 days
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
--- OUTSIDE RECORDS SUMMARY | 2024-10-15 11:55 | XMS_ITS ---
Author Organization Felix Trevizo DO, [facility] Address [address] [place], [place] [id number] Care Team Providers Care Women'S Studies Professor Name Role Phone Felix Trevizo Primary Care Provider REASON FOR VISIT Refills MEDICATIONS Medication SIG (Take, Route, Fr equency, Duration) Notes Start Date End Date Status oxyCODONE HCl 10 MG 1 tablet as needed O rally every 6 hrs for 30 days 08/16/2024 Active Encounters Encounter Location Date Provider Diagnosis Felix Trevizo DO, [facility] [address] [place], [place] [id number] 08/16/2024 Felix Trevizo T3 spinal cord injury, subsequent encounter S24.102D ASSESSMENTS Encounter Date Diagnosis Assessment Notes Treatment Notes Treatment Clinical Notes 08/16/2024 T3 spinal cord injury, subsequent encounter (ICD-10 - S24.102D) PLAN OF TREATMENT Medication Medication Name Sig Start Date Stop Date Notes oxyCODONE HCl 10 MG 1 tablet as needed O rally every 6 hrs for 30 days 08/16/2024
== END 2024-10-15 11:12 | disposition home or self-care (01) ==
LOC: HO.HMCH 10:28
PROVIDERS: PCP Internal Medicine; Visit Provider Physician Assistant Medical
DX: G82.20 Paraplegia, unspecified (principal); S24.102A Unspecified injury at T2-T6 level of thoracic spinal cord, initial encounter; Z93.59 Other cystostomy status; Z99.3 Dependence on wheelchair; K59.00 Constipation, unspecified; Z87.440 Personal history of urinary (tract) infections; N31.9 Neuromuscular dysfunction of bladder, unspecified

== ENCOUNTER → 2024-10-15 10:28 | Outpatient (BNVA) | payer MEDICARE, MEDICAID, SELFPAY | PROVIDERS: PCP Internal Medicine; Visit Provider Physician Assistant Medical | DX: Z99.3 Dependence on wheelchair (principal); K59.00 Constipation, unspecified; N31.9 Neuromuscular dysfunction of bladder, unspecified; S24.102D Unspecified injury at T2-T6 level of thoracic spinal cord, subsequent encounter; G82.20 Paraplegia, unspecified; Z87.440 Personal history of urinary (tract) infections; Z93.59 Other cystostomy status | CPT/HCPCS: 96127 ==

== ENCOUNTER 2024-11-11 09:55 | Outpatient (RCR) | payer MEDICARE, MEDICAID, SELFPAY | END 2024-11-11 09:56 | disposition home or self-care (01) | LOC: HO.WCC 09:55 | PROVIDERS: PCP Internal Medicine; Visit Provider Surgery | DX: L20.89 Other atopic dermatitis (principal); G82.20 Paraplegia, unspecified; F12.90 Cannabis use, unspecified, uncomplicated | CPT/HCPCS: 99212 ==

== ENCOUNTER 2025-05-27 10:36 | Outpatient (REF) | payer MEDICARE, MEDICAID, SELFPAY ==
[2025-05-27 16:05] LABS: Cannabinoid Screen Urine Not Detected (Not Detect)
== END 2025-05-27 10:37 | disposition home or self-care (01) ==
LOC: HO.LAB 10:36
PROVIDERS: PCP Internal Medicine; Visit Provider Physician Assistant Medical
DX: G89.4 Chronic pain syndrome (principal); Z23 Encounter for immunization; G82.20 Paraplegia, unspecified; S24.102S Unspecified injury at T2-T6 level of thoracic spinal cord, sequela; Y24.9XXS Unspecified firearm discharge, undetermined intent, sequela; R25.2 Cramp and spasm; K21.9 Gastro-esophageal reflux disease without esophagitis; Z79.891 Long term (current) use of opiate analgesic; Z79.899 Other long term (current) drug therapy; Z99.3 Dependence on wheelchair; Z87.81 Personal history of (healed) traumatic fracture; Z13.31 Encounter for screening for depression; Z13.39 Encounter for screening examination for other mental health and behavioral disorders
CPT/HCPCS: 80307; 90471; 90656; 96127; 99212

== ENCOUNTER 2025-05-27 10:36 | Outpatient (AMB) | payer MEDICARE, MEDICAID, SELFPAY ==
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
[2025-05-27 10:34] VITALS: BP 133/78; PULSE 75; RESP 16; TEMP 36.2; O2SAT 100
== END 2025-05-27 13:07 | disposition home or self-care (01) ==
LOC: HO.HMCSH 10:36
PROVIDERS: PCP Internal Medicine; Visit Provider Physician Assistant Medical
DX: G89.4 Chronic pain syndrome (principal); G82.20 Paraplegia, unspecified; S24.102A Unspecified injury at T2-T6 level of thoracic spinal cord, initial encounter; Z99.3 Dependence on wheelchair; Z87.81 Personal history of (healed) traumatic fracture; R25.2 Cramp and spasm; K21.9 Gastro-esophageal reflux disease without esophagitis; Z23 Encounter for immunization

== ENCOUNTER 2025-07-28 10:03 | Outpatient (AMB) | payer MEDICARE, MEDICAID, SELFPAY ==
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
[2025-07-28 10:22] VITALS: BP 170/80; PULSE 70; O2SAT 98; BMI 26.6
== END 2025-07-28 10:50 | disposition home or self-care (01) ==
LOC: HO.PMC 10:04
PROVIDERS: PCP Physician Assistant Medical; Referring Provider Physician Assistant Medical; Visit Provider Nurse Practitioner Family
DX: G82.20 Paraplegia, unspecified (principal); S24.102A Unspecified injury at T2-T6 level of thoracic spinal cord, initial encounter; G89.4 Chronic pain syndrome; Z87.81 Personal history of (healed) traumatic fracture; R25.2 Cramp and spasm
CPT/HCPCS: 99204

== ENCOUNTER → 2025-07-28 10:03 | Outpatient (BNVA) | payer MEDICARE, MEDICAID, SELFPAY | PROVIDERS: PCP Physician Assistant Medical; Referring Provider Physician Assistant Medical; Visit Provider Nurse Practitioner Family | DX: G82.20 Paraplegia, unspecified (principal); S24.102A Unspecified injury at T2-T6 level of thoracic spinal cord, initial encounter; G89.4 Chronic pain syndrome; Z87.81 Personal history of (healed) traumatic fracture; R25.2 Cramp and spasm; Z79.891 Long term (current) use of opiate analgesic | CPT/HCPCS: 99202 ==